=== PATIENT | female | born 1945 | race Caucasian/White ===

== ENCOUNTER 2018-03-18 10:48 | Outpatient (REF) | payer MEDICARE, OTHER, SELFPAY ==
[2018-03-18 21:05] LABS: Anion Gap 11.6 mmol/L (3-11); BUN 28 mg/dL (7-18); CO2 24.4 mmol/L (21.0-32.0); CREATININE 1.63 mg/dL (0.55-1.02); Calcium 9.1 mg/dL (8.5-10.1); Chloride 105 mmol/L (98-107); Estimated GFR 30.93 (mL/min/1.73m2); Glucose 94 mg/dL (70-100); Magnesium 1.5 mg/dL (1.8-2.4); Potassium 4.2 mmol/L (3.5-5.1); Sodium 141 mmol/L (136-145)
== END 2018-03-18 11:08 ==
LOC: NCHCN 10:48
PROVIDERS: PCP Specialist/Technologist Athletic Trainer; Visit Provider Specialist/Technologist Athletic Trainer
DX: N18.2 Chronic kidney disease, stage 2 (mild) (principal); E83.42 Hypomagnesemia; I10 Essential (primary) hypertension
CPT/HCPCS: 80048; 83735

== ENCOUNTER 2018-10-01 11:02 | Outpatient (REF) | payer MEDICARE, OTHER, SELFPAY ==
[2018-10-01 22:44] LABS: Abs Immature Grans 0.03 k/cumm (0.0-0.09); Absolute Basophil Count 0.04 k/cumm (0.0-0.2); Absolute Eosinophil Count 0.43 k/cumm (0.0-0.7); Absolute Lymphocyte Count 2.15 k/cumm (1.2-3.4); Absolute Monocyte Count 0.86 k/cumm (0.11-0.7); Absolute Neutrophil Count 4.24 k/cumm (1.2-6.7); Basophils % 0.5; Eosinophils % 5.5; HCT 37.7 % (36.0-46.0); HGB 12.7 g/dL (12.0-15.5); Immature Grans % 0.4; Lymphocytes % 27.7; Mean Corp. HGB Concentration 33.7 g/dL (32.0-36.0); Mean Corpuscular Hemoglobin 31.4 pg (27.0-33.0); Mean Corpuscular Volume 93.1 fL (80-95); Mean Platelet Volume 11.1 fL (8.0-11.0); Monocytes % 11.1; Neutrophils % 54.8; Platelet Count 278 x1000/uL (130-400); RBC 4.05 m/cumm (4.00-5.20); RBC Distribution Width 12.5 % (11.7-14.6); White Blood Cell Count 7.75 k/cumm (4.4-10.8)
[2018-10-01 22:57] LABS: ALT 20 U/L (12-78); AST 11 U/L (15-37); Albumin 3.8 g/dL (3.4-5.0); Alkaline Phosphatase 73 U/L (46-116); BUN 26 mg/dL (7-18); Bilirubin, Total 0.8 mg/dL (0.2-1.0); CREATININE 1.71 mg/dL (0.55-1.02); Calcium 10.3 mg/dL (8.5-10.1); Chloride 102 mmol/L (98-107); Cholesterol 219 mg/dL (50-200); Estimated GFR 29.26 (mL/min/1.73m2); Glucose 106 mg/dL (70-100); HDL Cholesterol 45 mg/dL (40-60); LDL CHOLESTEROL 147 mg/dL (<100); Magnesium 1.4 mg/dL (1.8-2.4); Potassium 3.8 mmol/L (3.5-5.1); Sodium 139 mmol/L (136-145); TSH 3.28 uIU/mL (0.358-3.74); Total Protein 7.7 g/dL (6.4-8.2); Triglyceride 170 mg/dL (30-150)
[2018-10-01 23:12] LABS: C-Reactive Protein 0.73 mg/dL (0.0-0.3); ESR 77 MM/HR (0-30)
== END 2018-10-01 11:22 ==
LOC: NCHCN 11:02
PROVIDERS: PCP Specialist/Technologist Athletic Trainer; Visit Provider Nurse Practitioner Family
DX: I10 Essential (primary) hypertension (principal); E03.9 Hypothyroidism, unspecified; E78.5 Hyperlipidemia, unspecified; E83.42 Hypomagnesemia; N18.2 Chronic kidney disease, stage 2 (mild)
CPT/HCPCS: 80053; 80061; 83721; 85652; 83735; 84443; 85025; 86140

== ENCOUNTER 2019-01-13 08:32 | Outpatient (REF) | payer MEDICARE, OTHER, SELFPAY ==
[2019-01-13 22:06] LABS: ALT 20 U/L (12-78); AST 14 U/L (15-37); Calculated LDL 77 mg/dL; Cholesterol 140 mg/dL (50-200); HDL Cholesterol 39 mg/dL (40-60); Triglyceride 123 mg/dL (30-150)
[2019-01-13 22:23] LABS: Creatine Kinase 59 U/L (26-192)
== END 2019-01-13 08:52 ==
LOC: NCHCN 08:32
PROVIDERS: PCP Specialist/Technologist Athletic Trainer; Visit Provider Nurse Practitioner Family
DX: E78.5 Hyperlipidemia, unspecified (principal)
CPT/HCPCS: 80061; 82550; 83721; 84450; 84460

== ENCOUNTER 2019-03-06 02:06 | Outpatient (CLI) | payer MEDICARE, OTHER, SELFPAY ==
--- NOTE | 2019-03-06 10:21 | DI.MAMMO_ITS ---
EXAM: MG MAMMO SCREENING CLINICAL HISTORY: SCREENING Z12.39 TECHNIQUE: Mammograms were interpreted according to the usual protocol including computer analysis w [employer] CAD system, tomosynthesis and C-view imaging. COMPARISON: Comparison is made with outside exams dated 2013 through 2018. FINDINGS: The breasts are composed of scattered fibroglandular densities., breast density category B. There a re no suspicious masses or suspicious microcalcifications. There has been no significant change. IMPRESSION: BI-RADS Cat 1 - NegativeNo specific evidence of malignancy at this time. Routine screening examinatio ns are suggested at yearly intervals in this age group according to the ACS ACR guidelines. Breast Density - Category B - Scattered areas of fibroglandular density
== END 2019-03-06 02:26 ==
PROVIDERS: PCP Nurse Practitioner Family; Visit Provider Nurse Practitioner Family
DX: Z12.31 Encounter for screening mammogram for malignant neoplasm of breast (principal)
CPT/HCPCS: 77063; 77067

== ENCOUNTER 2019-04-21 10:40 | Outpatient (REF) | payer MEDICARE, OTHER, SELFPAY ==
[2019-04-21 21:35] LABS: Anion Gap 11.1 mmol/L (3-11); BUN 26 mg/dL (7-18); CO2 25.9 mmol/L (21.0-32.0); CREATININE 1.59 mg/dL (0.55-1.02); Calcium 9.4 mg/dL (8.5-10.1); Chloride 103 mmol/L (98-107); Estimated GFR 31.74 (mL/min/1.73m2); Glucose 95 mg/dL (70-100); HDL Cholesterol 44 mg/dL (40-60); LDL CHOLESTEROL 90 mg/dL (<100); Potassium 3.9 mmol/L (3.5-5.1); Sodium 140 mmol/L (136-145)
[2019-04-21 21:45] LABS: Magnesium 1.6 mg/dL (1.8-2.4)
== END 2019-04-21 11:00 ==
LOC: NCHCN 10:40
PROVIDERS: PCP Nurse Practitioner Family; Visit Provider Nurse Practitioner Family
DX: E78.5 Hyperlipidemia, unspecified (principal)
CPT/HCPCS: 80048; 83721; 83718; 83735

== ENCOUNTER 2019-07-09 13:53 | Outpatient (REF) | payer MEDICARE, OTHER, SELFPAY ==
[2019-07-09 20:24] LABS: Anion Gap 9.5 mmol/L (3-11); BUN 29 mg/dL (7-18); CO2 27.5 mmol/L (21.0-32.0); CREATININE 1.61 mg/dL (0.55-1.02); Calcium 10.4 mg/dL (8.5-10.1); Chloride 102 mmol/L (98-107); Estimated GFR 31.28 (mL/min/1.73m2); Glucose 99 mg/dL (74-106); Magnesium 1.8 mg/dL (1.8-2.4); Sodium 139 mmol/L (136-145)
== END 2019-07-09 14:13 ==
LOC: NCHCN 13:53
PROVIDERS: PCP Nurse Practitioner Family; Visit Provider Nurse Practitioner Family
DX: I10 Essential (primary) hypertension (principal); N18.2 Chronic kidney disease, stage 2 (mild)
CPT/HCPCS: 80048; 83735

== ENCOUNTER 2020-01-05 13:08 | Outpatient (REF) | payer MEDICARE, OTHER, SELFPAY ==
[2020-01-05 19:18] LABS: Anion Gap 11.7 mmol/L (3-11); BUN 41 mg/dL (7-18); CO2 25.3 mmol/L (21.0-32.0); CREATININE 1.79 mg/dL (0.55-1.02); Calcium 10.1 mg/dL (8.5-10.1); Chloride 102 mmol/L (98-107); Estimated GFR 27.61 (mL/min/1.73m2); Glucose 105 mg/dL (74-106); Potassium 4.1 mmol/L (3.5-5.1); Sodium 139 mmol/L (136-145)
== END 2020-01-05 13:28 ==
LOC: NCHCN 13:08
PROVIDERS: PCP Nurse Practitioner Family; Visit Provider Nurse Practitioner Family
DX: E78.5 Hyperlipidemia, unspecified (principal)
CPT/HCPCS: 80048

== ENCOUNTER 2020-01-06 14:45 | Outpatient (REF) | payer MEDICARE, OTHER, SELFPAY | END 2020-01-06 15:05 | LOC: NCHCN 14:45 | PROVIDERS: PCP Nurse Practitioner Family; Visit Provider Nurse Practitioner Family | DX: Z11.59 Encounter for screening for other viral diseases (principal) | CPT/HCPCS: U0003 ==

== ENCOUNTER 2020-03-19 04:15 | Outpatient (CLI) | payer MEDICARE, OTHER, SELFPAY ==
--- NOTE | 2020-03-19 | DI.MAMMO_ITS ---
EXAM: MG MAMMO SCREENING CLINICAL HISTORY: SCREENING,Z12.39 TECHNIQUE: Bilateral full field digital CC and MLO mammographic images were obtained with 3D tomosyn thesis and utilizing computer aided detection (CAD). COMPARISON: Available for comparison. FINDINGS: Masses/Architectural Distortion: Stable nodules are seen in the right breast. No suspicious masses a rchitectural distortion is noted. Microcalcifications: No suspicious pleomorphic-type are seen. Skin Thickening/Nipple Retraction: None. IMPRESSION: 1. No significant interval change with no specific features of malignancy noted. 2. Unless there is more urgent need, screening mammography is recommended, as per [employer] guidelines. BI-RADS Category 1 - Negative Breast Density - Category B - Scattered areas of fibroglandular density A negative radiographic report should not delay biopsy if a dominant or clinically suspicious mass is present. Up to ten percent of cancers are not identified on mammography. A negative report may reinforce clinical impression. Adenosis and dense breasts may obscure an underlying neoplasm. False positive reports average 6 to 10%. Patient will receive a letter notifying them of these results.
== END 2020-03-19 04:35 ==
PROVIDERS: PCP Nurse Practitioner Family; Visit Provider Nurse Practitioner Family
DX: Z12.31 Encounter for screening mammogram for malignant neoplasm of breast (principal); N63.10 Unspecified lump in the right breast, unspecified quadrant
CPT/HCPCS: 77063; 77067

== ENCOUNTER 2020-05-05 10:40 | Outpatient (REF) | payer MEDICARE, OTHER, SELFPAY ==
[2020-05-05 21:22] LABS: ALT 19 U/L (14-59); AST 17 U/L (15-37); HDL Cholesterol 48 mg/dL (40-60); LDL CHOLESTEROL 81 mg/dL (<100); Magnesium 1.7 mg/dL (1.8-2.4); TSH 3.14 uIU/mL (0.36-3.74)
[2020-05-05 21:37] LABS: Creatine Kinase 93 U/L (26-192)
== END 2020-05-05 11:00 ==
LOC: NCHCN 10:40
PROVIDERS: PCP Nurse Practitioner Family; Visit Provider Nurse Practitioner Family
DX: E78.5 Hyperlipidemia, unspecified (principal); I10 Essential (primary) hypertension; E03.9 Hypothyroidism, unspecified
CPT/HCPCS: 82550; 83721; 83718; 83735; 84443; 84450; 84460

== ENCOUNTER 2020-11-02 11:25 | Outpatient (REF) | payer MEDICARE, OTHER, SELFPAY ==
[2020-11-02 15:39] LABS: Anion Gap 12.9 mmol/L (3-11); BUN 29 mg/dL (7-18); CO2 24.1 mmol/L (21.0-32.0); CREATININE 1.7 mg/dL (0.55-1.02); Calcium 9.5 mg/dL (8.5-10.1); Chloride 105 mmol/L (98-107); Glucose 108 mg/dL (74-106); Sodium 142 mmol/L (136-145)
== END 2020-11-02 11:26 | disposition home or self-care (01) ==
LOC: NCHCN 11:25
PROVIDERS: PCP Nurse Practitioner Family; Visit Provider Nurse Practitioner Family
DX: I10 Essential (primary) hypertension (principal); K21.9 Gastro-esophageal reflux disease without esophagitis; N18.2 Chronic kidney disease, stage 2 (mild)
CPT/HCPCS: 80048

== ENCOUNTER 2021-03-21 01:39 | Outpatient (CLI) | payer MEDICARE, OTHER, SELFPAY ==
--- NOTE | 2021-03-21 11:20 | DI.MAMMO_ITS ---
Exam(s) MAMMO SCREENING EXAM: MAMMO SCREENING CLINICAL HISTORY: SCREENING, Z12.39. TECHNIQUE: Bilateral full field digital CC and MLO mammographic images were obtained with 3D tomosyn thesis and utilizing computer aided detection (CAD). COMPARISON: Prior mammograms dating back to 2013, the most recent being March 2020. FINDINGS: No new significant radiograph findings in left breast Two nodules are again noted in the right breast. The more anterior of these nodules appears of sligh tly increased in size, presently measuring 6 by 6 millimeters this is located 4 cm in from the nipple on the CC view. There are no malignant-appearing microcalcification groups in this region or elsewhere in either [address]. There is no significant architectural distortion nor skin thickening-retraction. IMPRESSION: Two right breast nodules. The more anterior of these 2 nodules appears to have increased in size. B reast ultrasound recommended. BI-RADS Category 0 - Assessment Incomplete: Need additional imaging evaluation Breast Density - Category B - Scattered areas of fibroglandular density Breast density Category C or D implies that the patient has dense breast tissue. Dense breast tissue can make it harder to find cancer on a mammogram. Dense breast tissue is also associated with an incr eased risk of breast cancer. This information about the result of the mammogram report was provided to the patient to raise their awareness. Use this report when you speak with the patient about their risks for breast cancer, which includes their family history. At that time, you may recommend additional screening tests (Ultrasoun d or MRI) as these tests may add significant information. A negative radiographic report should not delay biopsy if a dominant or clinically suspicious mass is present. Up to ten percent of cancers are not identified on mammography. A negative report may reinforce clinical impression. Adenosis and dense breasts may obscure an underlying neoplasm. False positive reports average 6 to 10%. Patient will receive a letter notifying them of these results.
== END 2021-03-21 01:59 ==
PROVIDERS: PCP Nurse Practitioner Family; Visit Provider Nurse Practitioner Family
DX: Z12.31 Encounter for screening mammogram for malignant neoplasm of breast (principal); R92.8 Other abnormal and inconclusive findings on diagnostic imaging of breast
CPT/HCPCS: 77063; 77067

== ENCOUNTER 2021-03-24 01:40 | Outpatient (CLI) | payer MEDICARE, OTHER, SELFPAY ==
--- NOTE | 2021-03-24 | DI.US_ITS ---
Exam(s) US BREAST RT COMPLETE EXAM: US BREAST RT COMPLETE CLINICAL HISTORY: F/U MAMMO, TWO RT BREAST NODULES,SLIGHTLY INCREASED IN SIZE. TECHNIQUE: Complete ultrasound of the right breast was performed including all 4 quadrants, the retr oareolar region, and the ipsilateral axilla. COMPARISON: Prior mammograms were reviewed. Most recent mammogram was 03/21/2021 FINDINGS: There are 3 findings seen on ultrasound. At the 1 o'clock position there is a microcyst measuring 4 x 2 millimeters, corresponding to the most posterior of the 2 nodules on the mammogram. At 2 o'clock position there is a 6 x 3 millimeter microcyst, this corresponding to the more anterior and larger of the 2 findings on the mammogram. At 9 o'clock position there is a 2 millimeter benign microcyst. Most importantly, there are no solid lesions in all 4 quadrants nor in the retroareolar region. Scanning of the axilla is negative for significant adenopathy. IMPRESSION: Three benign microcysts as described above. No solid lesions. Appropriate follow-up is to keep this patient yearly mammogram schedule, with earlier imaging if a se lf detected breast change is noted.. BI-RADS Category 2 - Benign Findings Breast Density - Category B - Scattered areas of fibroglandular density Breast density Category C or D implies that the patient has dense breast tissue. Dense breast tissue can make it harder to find cancer on a mammogram. Dense breast tissue is also associated with an incr eased risk of breast cancer. This information about the result of the mammogram report was provided to the patient to raise their awareness. Use this report when you speak with the patient about their risks for breast cancer, which includes their family history. At that time, you may recommend additional screening tests (Ultrasoun d or MRI) as these tests may add significant information. A negative radiographic report should not delay biopsy if a dominant or clinically suspicious mass is present. Up to ten percent of cancers are not identified on mammography. A negative report may reinforce clinical impression. Adenosis and dense breasts may obscure an underlying neoplasm. False positive reports average 6 to 10%. Patient will receive a letter notifying them of these results.
== END 2021-03-24 02:00 ==
PROVIDERS: PCP Nurse Practitioner Family; Visit Provider Nurse Practitioner Family
DX: R92.8 Other abnormal and inconclusive findings on diagnostic imaging of breast (principal); N60.11 Diffuse cystic mastopathy of right breast
CPT/HCPCS: 76642

== ENCOUNTER 2021-05-02 09:00 | Outpatient (REF) | payer MEDICARE, OTHER, SELFPAY ==
[2021-05-02 18:15] LABS: ALT 24 U/L (14-59); AST 14 U/L (15-37); Anion Gap 13.4 mmol/L (3-11); BUN 36 mg/dL (7-18); CO2 23.6 mmol/L (21.0-32.0); CREATININE 1.7 mg/dL (0.55-1.02); Calcium 9.8 mg/dL (8.5-10.1); Calculated LDL 79 mg/dL (<100); Chloride 104 mmol/L (98-107); Cholesterol 150 mg/dL (<200); Creatine Kinase 56 U/L (26-192); Estimated GFR 29.22 (mL/min/1.73m2); Glucose 110 mg/dL (74-106); HDL Cholesterol 49 mg/dL (40-60); Potassium 3.8 mmol/L (3.5-5.1); Sodium 141 mmol/L (136-145); TSH (W/Ref FT4) 3.62 uIU/mL (0.36-3.74); Triglyceride 113 mg/dL (<150)
== END 2021-05-02 09:01 | disposition home or self-care (01) ==
LOC: NCHCN 09:00
PROVIDERS: PCP Nurse Practitioner Family; Visit Provider Nurse Practitioner Family
DX: E78.5 Hyperlipidemia, unspecified (principal); I10 Essential (primary) hypertension; N18.2 Chronic kidney disease, stage 2 (mild); E03.9 Hypothyroidism, unspecified
CPT/HCPCS: 80048; 80061; 82550; 84443; 84450; 84460

== ENCOUNTER 2022-01-16 16:36 | Outpatient (REF) | payer MEDICARE, OTHER, SELFPAY | END 2022-01-16 16:37 | disposition home or self-care (01) | LOC: LBN 16:36 | PROVIDERS: PCP Nurse Practitioner Family; Visit Provider Nurse Practitioner Family | DX: N39.0 Urinary tract infection, site not specified (principal) | CPT/HCPCS: 87077; 87086; 87186 ==

== ENCOUNTER → 2022-02-08 09:52 | Outpatient (BNVA) | payer MEDICARE, OTHER, SELFPAY | PROVIDERS: PCP Nurse Practitioner Family; Referring Provider Nurse Practitioner Family; Visit Provider Surgery | DX: Z86.010 Personal history of colon polyps (principal); Z12.11 Encounter for screening for malignant neoplasm of colon ==

== ENCOUNTER 2022-02-16 08:05 | Day surgery (SDC) | payer MEDICARE, OTHER, SELFPAY ==
--- NOTE | 2022-02-16 05:46 | PDOC.DSDIS_ITS ---
Discharge Plan Disposition Patient Disposition: HOME Condition: Good Discharge Details Reason For Visit: screening colonoscopy Attending Provider: Hossein Posadas Primary Care Provider: Jeimy Abarca Home Meds and New Rx's Prescriptions: Continued atenolol 25 mg tablet 25 mg PO HS magnesium oxide 400 mg magnesium capsule 400 mg PO BID atorvastatin 10 mg tablet 10 mg PO .qod amlodipine 5 MG tablet 5 mg PO HS levothyroxine 25 MCG tablet 25 mcg PO DAILY losartan-hydrochlorothiazide 1 EACH tablet 1 tab-cap PO HS aspirin 81 MG tablet,chewable 81 mg PO DAILY calcium-vitamin D3-vitamin K 1 EACH tablet,chewable 1 ea PO DAILY Discontinued bisacodyl [Dulcolax (bisacodyl)] 5 mg tablet,delayed release (DR/EC) 5 mg PO ONCE Qty: 4 0RF Rx Instructions: Take according to provider's instructions for colonoscopy prep. polyethylene glycol 3350 17 gram/dose powder 17 g PO ONCE Qty: 238 0RF Rx Instructions: To be taken as directed by prescriber's office for colonoscopy prep. Discharge Instructions Instructions: Colonoscopy (DC), Colorectal Polyps (DC) Additional Instructions: 1. If tolerated, consume a soft, low fiber diet for 1-2 days. 2[address] Do not drive, drink alcohol, operate machinery, make critical decisions, or do activities that require coordination or balance for 24 hours. 3. Because air was put into your colon during the procedure, expelling air from your rectum (passing gas or farting) is normal. 4. You may not have a bowel movement for 1-3 days because of the colonoscopy prep. This is normal. 5. Go directly to the emergency room if you notice any of the following: Develop chills (warm to touch), or if you have a thermometer and your temperature is above 101 Difficulty breathing or difficultly swallowing Persistent vomiting Severe abdominal pain, other than gas cramps Severe chest pain Black, tarry stools Any bleeding ? exceeding one tablespoon 6. Call your physician if the site where your intravenous was started becomes red, swollen, painful, and warm to touch. 7. Your physician has reviewed your pre-procedure medications. Please continue to take those medications as previously ordered. You will be given specific i nformation/education regarding any changes to your medications before leaving. Activity:: Activity as Tolerated Diet:: As Tolerated Discharge Orders Discharge Orders: Discharge Order (Routine); Ordered 02/16/22 Ordered By: Hossein Posadas DS: Diagnosis Discharge Diagnosis (1) Rectal polyp: Status: Acute Asessment and Plan: my office will call you with results of the biopsy
--- NOTE | 2022-02-16 05:49 | COLE_ITS ---
Colonoscopy Report Date of procedure: 02/16/22 Pre-op diagnosis general: screening colonoscopy for routine health maintenance Procedure: screening colonoscopy Surgeon: Hossein Posadas Anesthesia Type: General:No Airway Estimated blood loss (mL): 15 Pathology: other (rectal polyp at 18 cm) Complications: None Disposition: same day Indications: Meeta Ch is a 76-year-old woman who returns approximately 5 years after her last colonoscopy, for another screening colonoscopy. Her history relevant today is a polyp. Prep: Miralax/Dulcolax Procedure Start Time: 09:46 Procedure End Time: 10:10 Retraction Time: 20 Findings: There was a pedunculated polyp around 18 cm Procedure Description: After the induction of monitored anesthetic care, and with the patient in left lateral decubitus position, I began by performing an external anorectal exam.? Perineum and skin were normal, as was the anal verge.? There was mild evidence of fibrosed external hemorrhoids.? Next, I performed a digital rectal exam.? I did not appreciate any abnormal findings.? Next, I advanced a colonoscope into the rectal vault.? I performed retroflexion.? I did see signs of internal hemorrhoids.? Using insufflation, I then advanced the colonoscope beyond the rectal folds and into the sigmoid colon before advancing towards the cecum.? The quality of the prep was excellent.? The scope was noted to be in the cecum by identification of the ileocecal valve and appendiceal orifice.? I then began withdrawing the colonoscope using repeated irrigation as necessary for full evaluation of the colonic mucosa. ?Once the scope was withdrawn to the level of the rectum, great care was taken to examine portions of the rectal folds. Around 18 cm from the anal verge I identified a 1 cm polyp. ?It appeared pedunculated in character. ?I was able to remove this with a small snare. There was a small remaining portion of what appeared to be fibrosed stalk. I removed this with a single bite of a cold forceps. ?I examined the site, and there was minimal bleeding. ?Once this was completed, I continued to withdraw the scope and ex amine the remainder of the colonic mucosa.?Finally, the scope was withdrawn and the patient was brought to the same-day surgery recovery unit as the anesthetic wore off. ?The findings and instructions were shared with the patient prior to discharge.
--- NOTE | 2022-02-16 06:57 | W.ANESPRE ---
General Info Date of Service Date Performed: 02/16/22 Height: 5 ft Weight: 65.941 kg Body Mass Index (BMI): 28.3 Surgical Procedure: Operation Date: 02/16/22 09:35 Proposed Procedure Side Surgeon p Satish Posadas MD Meds Allergies and Home Medications Allergies Allergy/AdvReac Type Severity Reaction Status Date / Time morphine Allergy Mild Itching Verified 02/16/22 08:44 mannitol [From Reclast] AdvReac Intermediate eye Unverified 02/16/22 08:44 inflammation water for injection,sterile AdvReac Intermediate eye Unverified 02/16/22 08:44 [From Reclast] inflammation zoledronic acid AdvReac Intermediate eye Unverified 02/16/22 08:44 [From Reclast] inflammation Home Medication Medication Instructions Recorded amlodipine 5 mg tablet 5 mg PO HS 04/21/16 aspirin 81 mg chewable tablet 81 mg PO DAILY 04/21/16 calcium-vitamin D3-vitamin K 500 1 ea PO DAILY 04/21/16 mg-1,000 unit-40 mcg chewable tablet levothyroxine 25 mcg tablet 25 mcg PO DAILY 04/21/16 losartan 100 1 tab-cap PO HS 04/21/16 mg-hydrochlorothiazide 25 mg tablet atenolol 25 mg tablet 25 mg PO HS 02/08/22 atorvastatin 10 mg tablet 10 mg PO .qod 02/08/22 magnesium oxide 400 mg PO BID 02/08/22 Current Visit Medications: Current Medications Generic Name Dose Route Start Last Admin Trade Name Freq PRN Reason Stop Dose Admin Ringer's Solution 1,000 mls @ 80 mls/hr 02/16/22 06:00 IV 03/17/22 23:59 INFUSION UMAIR IV Miscellaneous Supplies 1 each 02/16/22 06:00 Iv Access IV 03/17/22 23:59 DIRECTED UMAIR Sodium Chloride 0 ml 02/16/22 06:00 Normal Saline Flush 10 Ml Syr IV 03/17/22 23:59 PRN PRN Sodium Chloride 0 ml 02/16/22 06:00 Normal Saline 10 Ml Vial IJ 03/17/22 23:59 DIRECTED PRN Sterile Water 0 ml 02/16/22 06:00 Water,Injection,Sterile 10 Ml Vial IJ 03/17/22 23:59 DIRECTED PRN PFSH Active Problems Active Problems: Problem Status Onset Code Screening for colon cancer Z12.11 Globus sensation R09.89 Medical History Medical History GERD (gastroesophageal reflux disease) Hx of renal insufficiency syndrome Hyperlipidemia Hyperplastic colon polyp Hypertension Hypothyroidism Osteoporosis Pain of left heel Tubular adenoma of colon (07/03/16) Medical History Comments:: Per pt. states the in the past she was told her BP drops during anesthesia Surgical History Surgical History Abdominal hysterectomy Cholecystectomy 2006 Colonoscopy - IV Sedation (07/03/16) 2006 EGD - IV Sedation 2012 Oophrectomy, Both Tobacco Smoking/Tobacco Use Status: Never Alcohol Alcohol Intake: never Substance Use Substance use: Never Substance use type: does not use Vital Signs and Lab Results Lab Results Blood Type / Crossmatch: No Data to Display Complete Blood Count: No Data to Display Complete Metabolic Panel: No Data to Display Liver Function Panel: No Data to Display Coagulation Panel: No Data to Display Cardiac Panel: No Data to Display Arterial Blood Gas: No Data to Display Venous Blood Gas: No Data to Display Pancreas Panel: No Data to Display Thyroid Panel: No Data to Display Infectious Disease: No Data to Display Blood Cultures: No Data to Display Toxicology Panel: No Data to Display Anesthesia Assessment and Plan Anesthesia History Personal History: Other Family History: No Family History of Anesthesia Complications Exercise Tolerance Exercise Tolerance: Metabolic Equivalents>4 Pertinent Negatives Pertinent Negatives: No Symptoms of GERD, No Major Cardiovascular Symptoms or Complaints, No Major Pulmonary Symptoms or Complaints and No History of CVA/TIA Cardiac & Pulmonary Exam Cardiac Exam: Normal S1/S2 Heart Sounds Pulmonary Exam: Clear Bilateral Breath Sounds Implantable Cardiac Device Does patient have a Pacemaker or an ICD?: No Airway Exam Known Difficult Airway: No Mallampati Class: 2 Mouth Opening: Normal (> 3cm) Thyromental Distance: Greater than 3 cm Neck Range of Motion: Full ROM Neck Circumference: Normal Teeth Condition: Normal Dentition ASA Classification ASA Score: ASA 3 Emergency Case?: No NPO Status NPO Status: NPO Clears >2 hours, Solids >8 hours Anesthesia Plan Resuscitation Status: Full Code Anesthesia Technique: General Anesthesia Airway Planned: Natural Airway Monitors Used: Standard Monitors
[2022-02-16 08:20] VITALS: BP 182/63; PULSE 44; RESP 18; TEMP 36.6; O2SAT 97
[2022-02-16] MEDS: Lactated Ringers 1,000 ML 80 ML IV (08:50)
[2022-02-16 09:47] VITALS: BMI 28.3
--- NOTE | 2022-02-16 10:06 | BOWEL_PTH ---
PATIENT: Meeta Ch LOC: [facility] U#:[id number] AGE/SX: 76/F ROOM: RE02/16/[address]: Hossein Posadas MD : [id number] BED: DIS: 02/16/2022 SPEC #: [id number] RECD: 02/16/22 12:16 STATUS: TSERING REQ #: [id number] JOSH: 02/16/22 10:[address]: Hossein Posadas DEPT: Surgical Specimen RECD BY: Gila Pino ENTERED: 02/16/22 12:17 SP TYPE: Bowel OTHR DR: Jeimy Abarca Tissues: 1 - BIOPSY BOWEL Procedures: GROSS AND MICRO LEVEL 4 Comments: [id number]
[2022-02-16 10:15] VITALS: BP 130/59; PULSE 46; RESP 16; TEMP 36; O2SAT 98
[2022-02-16 10:45] VITALS: BP 149/65; PULSE 45; RESP 16; TEMP 36.2; O2SAT 100
--- NOTE | 2022-02-16 15:19 | W.ANESPOSTOP ---
Postoperative Evaluation Date, Time and Location Date Performed: 02/16/22 Time Performed: 15:19 Patient Location: Day Surgery Unit Vital Signs Most Recent Imported Vital Signs: Most Recent Vital Signs Temp Pulse Resp BP Pulse Ox 36.2 C L 45 L 16 149/65 H 100 02/16/22 10:45 02/16/22 10:45 02/16/22 10:45 02/16/22 10:45 02/16/22 10:45 Pain Score Most Recent Pain Score: Most Recent Pain Score Pain Level 0 02/16/22 10:45 Assessment Mental Status: Awake (Alert & Oriented to Patient Baseline) Airway and Respiratory Function: Patent airway with normal (patient baseline) respiratory exam Cardiovascular Function: Hemodynamically Stable Hydration Status: Adequately Hydrated Nausea & Vomiting: No Nausea or Vomiting Pain: Pt. Denies Any Pain Peripheral Nerve Block: Patient did not receive a nerve block Postoperative Comments:: Patient seen earlier today, appropriate for discharge
== END 2022-02-16 11:05 | disposition home or self-care (01) ==
PROVIDERS: PCP Nurse Practitioner Family; Visit Provider Surgery
PROC: 0DJD8ZZ Inspection of Lower Intestinal Tract, Via Natural or Artificial Opening Endoscopic (ICD-10-PCS; CPT 45378; principal; 2022-02-16 09:30)
DX: Z12.11 Encounter for screening for malignant neoplasm of colon (principal); K62.1 Rectal polyp
CPT/HCPCS: 45385; 88305

== ENCOUNTER 2022-02-23 19:06 | Outpatient (REF) | payer MEDICARE, OTHER, SELFPAY ==
[2022-02-23 22:32] LABS: C & S Indicated? C&S Done As Ordered
[2022-02-23 22:34] LABS: Bacteria Many HPF (Negative); Crystals Negative HPF (Negative); Epithelial Cells Rare HPF (Negative); Mucus Negative (Negative); Other Cells Rare Transitional (Negative); WBC >50 HPF (0-5)
== END 2022-02-23 19:07 | disposition home or self-care (01) ==
LOC: LBN 19:06
PROVIDERS: PCP Nurse Practitioner Family; Visit Provider Physician Assistant Medical
DX: N39.0 Urinary tract infection, site not specified (principal)
CPT/HCPCS: 87077; 81015; 87086; 87186

== ENCOUNTER 2022-06-21 16:34 | Outpatient (REF) | payer MEDICARE, OTHER, SELFPAY ==
[2022-06-21 16:01] LABS: ALT 17 U/L (14-59); AST 21 U/L (15-37); Albumin 3.8 g/dL (3.4-5.0); Alkaline Phosphatase 80 U/L (46-116); Anion Gap 8.3 mmol/L (3-11); BUN 30 mg/dL (7-18); Bilirubin, Total 0.6 mg/dL (0.2-1.0); CO2 27.7 mmol/L (21.0-32.0); CREATININE 1.8 mg/dL (0.55-1.02); Calcium 10.3 mg/dL (8.5-10.1); Chloride 104 mmol/L (98-107); Estimated GFR 28.66 (mL/min/1.73m2); Glucose 108 mg/dL (74-106); HDL Cholesterol 52 mg/dL (40-60); LDL CHOLESTEROL 81 mg/dL (<100); Magnesium 1.9 mg/dL (1.8-2.4); Potassium 3.9 mmol/L (3.5-5.1); Sodium 140 mmol/L (136-145); TSH 2.86 uIU/mL (0.36-3.74); Total Protein 8.5 g/dL (6.4-8.2)
[2022-06-21 16:52] LABS: Creatine Kinase 66 U/L (26-192); FREE T4 1.37 ng/dL (0.76-1.46)
== END 2022-06-21 16:35 | disposition home or self-care (01) ==
LOC: NCHCN 16:34
PROVIDERS: PCP Nurse Practitioner Family; Visit Provider Nurse Practitioner Family
DX: E78.5 Hyperlipidemia, unspecified (principal); E03.9 Hypothyroidism, unspecified; E83.42 Hypomagnesemia
CPT/HCPCS: 80053; 82550; 83721; 83718; 83735; 84439; 84443

== ENCOUNTER 2022-07-17 00:32 | Outpatient (CLI) | payer MEDICARE, OTHER, SELFPAY ==
--- NOTE | 2022-07-17 08:30 | DI.MAMMO_ITS ---
Exam(s) MAMMO SCREENING EXAM: MAMMO SCREENING CLINICAL HISTORY: SCREENING, Z12.31 TECHNIQUE: Mammograms were interpreted according to the usual protocol including computer analysis w [employer] CAD system, tomosynthesis and C-view imaging. COMPARISON: 2013 through 2020 FINDINGS: The breasts are composed of scattered fibroglandular densities, Breast Density category B. No suspicious masses or suspicious microcalcifications are seen. Stable area of nodularity in the me dial right breast. Second nodule noted on prior exam no longer present. No skin thickening or abnormal axillary lymph nodes are seen. There has been no significant change from prior exams. IMPRESSION: BI-RADS Cat 2 - Benign Findings Yearly screening mammography is recommended. Breast Density - Category B, scattered fibroglandular densities. A negative radiographic report should not delay biopsy if a dominant or clinically suspicious mass is present. Up to ten percent of cancers are not identified on mammography. A negative report may reinforce clinical impression. Adenosis and dense breasts may obscure an underlying neoplasm. False positive reports average 6 to 10%. Patient will receive a letter notifying them of these results.
== END 2022-07-17 00:52 ==
LOC: DI 00:33
PROVIDERS: PCP Nurse Practitioner Family; Visit Provider Nurse Practitioner Family
DX: Z12.31 Encounter for screening mammogram for malignant neoplasm of breast (principal)
CPT/HCPCS: 77063; 77067

== ENCOUNTER 2022-08-04 02:17 | Outpatient (CLI) | payer MEDICARE, OTHER, SELFPAY ==
[2022-08-04 10:16] LABS: Abs Immature Grans 0.03 10^3/uL (0.0-0.06); Absolute Basophil Count 0.08 10^3/uL (0.0-0.2); Absolute Eosinophil Count 0.69 10^3/uL (0.0-0.7); Absolute Lymphocyte Count 2.39 10^3/uL (1.2-3.4); Absolute Monocyte Count 0.91 10^3/uL (0.1-0.8); Absolute Neutrophil Count 4.53 10^3/uL (1.2-6.7); Basophils % 0.9; HCT 34.1 % (36.0-46.0); HGB 11.4 g/dL (11.2-15.7); Immature Grans % 0.3; Lymphocytes % 27.7; MCH 30.6 pg (27.0-33.0); MCHC 33.4 % (32.0-36.0); MCV 92 fL (80-95); MPV 9.5 fL (8.0-11.0); Monocytes % 10.5; Neutrophils % 52.6; Platelet Count 271 10^3/uL (130-400); RBC 3.72 10^6/uL (3.93-5.22); RDW 12.2 % (11.7-14.6); WBC 8.63 10^3/uL (4.4-10.8)
[2022-08-04 11:25] LABS: Albumin 3.5 g/dL (3.4-5.0); Anion Gap 10.2 mmol/L (3-11); BUN 29 mg/dL (7-18); CO2 26.8 mmol/L (21.0-32.0); CREATININE 1.7 mg/dL (0.55-1.02); Calcium 10.2 mg/dL (8.5-10.1); Chloride 102 mmol/L (98-107); Glucose 96 mg/dL (74-106); PHOSPHORUS 3.9 mg/dL (2.6-4.7); Sodium 139 mmol/L (136-145)
[2022-08-04 12:01] LABS: Iron 59 ug/dL (50-170); Total Iron Binding Capacity 262 ug/dL (250-450); Transferrin Sat 23 % (15-50)
[2022-08-04 13:06] LABS: Ferritin 127 ng/mL (8-252)
[2022-08-04 13:16] LABS: Vitamin D 25 Total 27.7 ng/mL (30-100)
[2022-08-04 20:31] LABS: Parathyroid Hormone,Intact 11 pg/mL (19-88)
== END 2022-08-04 02:18 | disposition home or self-care (01) ==
PROVIDERS: PCP Nurse Practitioner Family; Visit Provider Nurse Practitioner
DX: N18.4 Chronic kidney disease, stage 4 (severe) (principal)
CPT/HCPCS: 36415; 80048; 82306; 82040; 82728; 83540; 83550; 83970; 84100; 85025

== ENCOUNTER 2023-01-02 17:12 | Outpatient (REF) | payer MEDICARE, OTHER, SELFPAY | END 2023-01-02 17:13 | disposition home or self-care (01) | LOC: LBN 17:12 | PROVIDERS: PCP Nurse Practitioner Family; Visit Provider Nurse Practitioner Family | DX: N30.01 Acute cystitis with hematuria (principal) | CPT/HCPCS: 87077; 87086 ==

== ENCOUNTER 2023-08-01 13:08 | Outpatient (REF) | payer MEDICARE, OTHER, SELFPAY ==
[2023-08-01 16:00] LABS: ALT 21 U/L (14-59); AST 18 U/L (15-37); Albumin 3.6 g/dL (3.4-5.0); Alkaline Phosphatase 83 U/L (46-116); Anion Gap 11.6 mmol/L (3-11); BUN 46 mg/dL (7-18); Bilirubin, Total 0.7 mg/dL (0.2-1.0); CO2 24.4 mmol/L (21.0-32.0); CREATININE 1.9 mg/dL (0.55-1.02); Calcium 9.2 mg/dL (8.5-10.1); Chloride 103 mmol/L (98-107); Estimated GFR 26.69 (mL/min/1.73m2); Glucose 108 mg/dL (74-106); HDL Cholesterol 49 mg/dL (40-60); LDL CHOLESTEROL 74 mg/dL (<100); Potassium 4.2 mmol/L (3.5-5.1); Sodium 139 mmol/L (136-145); TSH 3.01 uIU/Ml (0.36-3.74)
[2023-08-01 16:06] LABS: Vitamin D 25 Total 25.6 ng/mL (30-100)
[2023-08-01 16:17] LABS: Creatine Kinase 56 U/L (26-192); FREE T4 1.41 ng/dL (0.76-1.46)
== END 2023-08-01 13:09 | disposition home or self-care (01) ==
LOC: NCHCN 13:08
PROVIDERS: PCP Nurse Practitioner Family; Referring Provider Nurse Practitioner Family; Visit Provider Nurse Practitioner Family
DX: E03.9 Hypothyroidism, unspecified (principal); I10 Essential (primary) hypertension; N28.1 Cyst of kidney, acquired; E83.42 Hypomagnesemia; Z79.899 Other long term (current) drug therapy
CPT/HCPCS: 80053; 82306; 82550; 83721; 83718; 83735; 84439; 84443

== ENCOUNTER 2023-08-14 21:08 | Outpatient (REF) | payer MEDICARE, OTHER, SELFPAY | END 2023-08-14 21:09 | disposition home or self-care (01) | LOC: LBN 21:08 | PROVIDERS: PCP Nurse Practitioner Family; Visit Provider Nurse Practitioner Family | DX: N30.00 Acute cystitis without hematuria (principal) | CPT/HCPCS: 87086 ==

== ENCOUNTER → 2023-08-16 01:33 | Outpatient (CLI) | payer MEDICARE, OTHER, SELFPAY ==
--- NOTE | 2023-08-16 | DI.DEXA_ITS ---
Exam(s) XR DEXA BONE DENSITY W/WO PAULINO EXAM: XR DEXA BONE DENSITY W/WO PAULINO CLINICAL HISTORY: Z78.0 Asymptomatic menopausal state TECHNIQUE: COMPARISON: BD BD Bone Density DXA Axial Skeleton from 03/24/2020 FINDINGS: Lateral Spine Image: Unremarkable. No compression deformities identified. Left hip: Total T-Score: -1.5. The T-score at the femoral neck on the current examination is -2.3. This compar es to -2.2 on the prior examination. Total Z-Score: 0.4 T- and Z-scores: Findings are consistent with osteopenia. No significant change is seen. Lumbar Spine: Total T-Score: -1.7. This compares to -0.9 on the prior examination. Total Z-Score: 0.9 T- and Z-scores: This is consistent with osteopenia. There is osteoporosis noted in the L4 vertebral body with a T-score of -2.9. IMPRESSION: Osteoporosis seen in the L4 vertebral body. Otherwise osteopenia.
--- NOTE | 2023-08-16 15:05 | DI.MAMMO_ITS ---
Exam(s) MAMMO SCREENING EXAM: MAMMO SCREENING CLINICAL HISTORY: Z12.31 Encounter for screening mammogram for malig neop of breast. TECHNIQUE: Bilateral full field digital CC and MLO mammographic images were obtained with 3D tomosyn thesis and utilizing computer aided detection (CAD). COMPARISON: Prior mammograms were reviewed. FINDINGS: There has been no significant change in the appearance and distribution of the fibroglandular tissue. Benign-appearing small nodule in the medial aspect of the right breast is unchanged from prior studie s as is an even smaller more posteriorly located nodule in the right breast. There are no new spiculated masses nor malignant appearing microcalcification groups. There is no significant architectural distortion nor skin thickening-retraction. IMPRESSION: No radiographic evidence of malignancy. Stable benign findings. BI-RADS Category 2 - Benign Findings Breast Density - Category B - Scattered areas of fibroglandular density Breast density Category C or D implies that the patient has dense breast tissue. Dense breast tissue can make it harder to find cancer on a mammogram. Dense breast tissue is also associated with an incr eased risk of breast cancer. This information about the result of the mammogram report was provided to the patient to raise their awareness. Use this report when you speak with the patient about their risks for breast cancer, which includes their family history. At that time, you may recommend additional screening tests (Ultrasoun d or MRI) as these tests may add significant information. A negative radiographic report should not delay biopsy if a dominant or clinically suspicious mass is present. Up to ten percent of cancers are not identified on mammography. A negative report may reinforce clinical impression. Adenosis and dense breasts may obscure an underlying neoplasm. False positive reports average 6 to 10%. Patient will receive a letter notifying them of these results.
== END ==
PROVIDERS: PCP Nurse Practitioner Family; Visit Provider Nurse Practitioner Family
DX: Z78.0 Asymptomatic menopausal state (principal); Z12.31 Encounter for screening mammogram for malignant neoplasm of breast; Z13.820 Encounter for screening for osteoporosis; M81.0 Age-related osteoporosis without current pathological fracture
CPT/HCPCS: 77063; 77067; 77080

== ENCOUNTER → 2023-08-29 02:00 | Outpatient (CLI) | payer MEDICARE, OTHER, SELFPAY ==
--- NOTE | 2023-08-29 08:30 | DI.US_ITS ---
APPROVED REPORT EXAM: Comprehensive 2D, Doppler, and color-flow Echocardiogram Patient Location: Out-Patient [facility] Attendant: Carmen Darby RDCS (AE) Indications: Cardiac murmur unspecified Other Information Study Quality: Adequate Conclusion Normal left ventricular wall thickness and chamber size. EF is 60-65%, normal wall motion Normal right ventricular sie and function Both atria are mildly dilated Mildly sclerotic trileaflet aortic valve without stenosis or regurgitation Normal mitral valve with moderate regurgitation Normal tricuspid valve with moderate regurgitation. Estimated RVSP is 49 mmHg Wall motion Left Ventricle The left ventricle is normal size. The left ventricular systolic function is normal. The left ventric ular ejection fraction is within the normal range. There is normal left ventricular wall thickness. T here is normal LV segmental wall motion. There is no ventricular septal defect visualized. LVEF is 61 %. Right Ventricle The right ventricle is normal size. The right ventricular systolic function is normal. Atria Left atrium is mildly dilated. Right atrium is mildly dilated. The interatrial septum is intact with no evidence for an atrial septal defect. Aortic Valve The aortic valve is mildly sclerotic Aortic valve is trileaflet. There is no aortic valvular stenosis . No aortic regurgitation is present. Mitral Valve The mitral valve is normal in structure. No evidence of mitral valve stenosis. Moderate mitral regur gitation. Tricuspid Valve The tricuspid valve is normal in structure. There is no tricuspid valve stenosis. Moderate tricuspid regurgitation. The RVSP is 48.8mmHg. Pulmonic Valve The pulmonary valve is normal in structure. There is no pulmonic valvular stenosis. Trace pulmonic re gurgitation. Great Vessels The aortic root is normal in size. The ascending aorta is normal in size. Aortic arch is not well vis ualized. IVC is normal in size and collapses >50% with inspiration. Pericardium There is no pericardial effusion. 2D Dimensions IVSD d PLAX 0.89 cm F: 0.6-1.0 Ao Root d 3.04 cm F: 2.7 - 3.3 LVPW d PLAX 0.88 cm F: 0.6 - 1.0 Ao Asc Diam d 3.16 cm F: 2.3 - 3.1 LVID d PLAX 4.33 cm F: 3.8 - 5.2 LVDs 2.92 cm F: 2.2 - 3.5 LV EF Teichholz 61.3 % FS 32.64 % LV EDV (Teich) 84.4 mL LV ESV (Teich) 32.6 mL M-Mode TAPSE 2.69 cm (M/F) >1.7 Auto EF LV EDV A4C 75.2 mL LV EDV A2C 82.1 mL LV EDV BP 79.7 mL LV ESV A4C 30.1 mL LV ESV A2C 31.2 mL LV ESV BP 30.8 mL LVEF(%) A4C 59.9 % LVEF(%) A2C 62.1 % LVEF(%) BP 61.4 % LV SV A4C 45.1 ml LV SV A2C 51.0 ml LV SV BP 48.9 ml LV CO A4C 2.5 L/min LV CO A2C 3.0 L/min LV CO BP 2.7 L/min HR A4C 54.80 BPM HR A2C 58.73 BPM LV EDV Index (BP) LA Volume LA Length A4C 5.7 cm LA Length A2C 5.2 cm LA Area A4C s 22.32 cm2 LA Area A2C s 18.37 cm2 LA Vol A4C A-L 74.40 mL LA Vol A2C A-L 54.79 mL LA Vol Biplane A-L 66.6 mL LA Vol/BSA A4C A-L LA Vol/BSA A2C A-L LA Vol/BSA BP A-L 41.6 mL/m2 LA Vol A4C MOD 68.9 mL LA Vol A2C MOD 50.7 mL LA Vol BP MOD 61.3 mL RA Volume RA Area A4C 12.8 cm2 RA ESV A4C (A-L) 30.3mL RA Vol/BSA A4C A-L RA Length A4C 4.6 cm RA ESV A4C (MOD) 29.2mL LV Diastology MV E' medial 0.082 (>0.07 m/s) MV E Vmax 1.08 (0.4-1.3 m/s) MV E/E' MED 13.11 (<14) MV A Vmax 0.85 (0.4-1.3 m/s) MV E' lateral 0.097 (>0.1 m/s) E/A Ratio 1.3 MV E/E' LAT 11.06 (<14) MV E' Average 0.090 m/s MV E/E'(average) 12.00 Aortic Valve AoV Vmax 1.89 m/s LVOT Vmax 1.17 m/s AoV Peak Grad 14.3 mmHg LVOT Peak Grad 5.5 mmHg AoV Area (Vmax) 1.73 cm2 LVOT VTI 0.332 m AoV VTI 0.524 m LVOT Mean Grad 3.1 mmHg AoV Mean Dragan. 1.28 m/s LVOT SV 92.85 mL AoV Mean Grad 7.4 mmHg LVOT Diam s 1.85 cm AoV Area (VTI) 1.77 cm2 Velocity Ratio 0.62 Mitral Valve MV DT 208 (160-240 msec) MR Vmax 5.69 m/s MV Vmax TIPS 1.10 m/s MR VTI 2.264 m MV Mean Grad 1.7 (<2mmHg) MR Peak Grad 129.3 mmHg MV VTI 0.433 m MR Mean Grad 100.0 mmHg MR PISA Radius 0.38 cm MR Aliasing Velocity 0.36 m/s Pulmonary Valve PV Vmax 0.83 (0.5-1.5 m/s) RVOT Vmax 0.75 m/s PV Peak Grad 2.8 mmHg RVOT Peak Gr. 2.2 mmHg PV Mean Dragan 0.64 m/s RVOT VTI 0.212 m PV Mean Grad 1.8 mmHg RVOT Mean Gr. 1.4 mmHg Tricuspid Valve RA Pressure 3.00 mmHg TR Vmax 3.38 m/s TV S' 0.14 m/s TR Peak Grad 45.7 mmHg RVSP (TR) 48.8 mmHg
== END ==
PROVIDERS: PCP Nurse Practitioner Family; Visit Provider Nurse Practitioner Family
DX: R01.1 Cardiac murmur, unspecified (principal)
CPT/HCPCS: 93306

== ENCOUNTER 2023-09-20 04:54 | Outpatient (CLI) | payer MEDICARE, OTHER, SELFPAY ==
[2023-09-20 15:13] LABS: Magnesium 1.5 mg/dL (1.8-2.4); PHOSPHORUS 4.1 mg/dL (2.6-4.7)
[2023-09-20 15:37] LABS: Vitamin D 25 Total 29.6 ng/mL (30-100)
[2023-09-20 23:33] LABS: Parathyroid Hormone,Intact 43 pg/mL (19-88)
== END 2023-09-20 04:55 | disposition home or self-care (01) ==
LOC: LBO 04:54
PROVIDERS: PCP Nurse Practitioner Family; Visit Provider Nurse Practitioner Family
DX: M81.0 Age-related osteoporosis without current pathological fracture (principal)
CPT/HCPCS: 36415; 82306; 83735; 83970; 84100

== ENCOUNTER 2023-10-26 02:43 | Outpatient (CLI) | payer MEDICARE, OTHER, SELFPAY ==
[2023-10-26 14:35] LABS: Abs Immature Grans 0.04 10^3/uL (0.0-0.06); Absolute Basophil Count 0.07 10^3/uL (0.0-0.2); Absolute Eosinophil Count 0.85 10^3/uL (0.0-0.7); Absolute Lymphocyte Count 2.37 10^3/uL (1.2-3.4); Absolute Monocyte Count 0.87 10^3/uL (0.1-0.8); Basophils % 0.8 %; Eosinophils % 9.6 %; HCT 34.7 % (36.0-46.0); HGB 11.6 g/dL (11.2-15.7); Immature Grans % 0.4 %; Lymphocytes % 26.6 %; MCH 31.5 pg (27.0-33.0); MCHC 33.4 % (32.0-36.0); MCV 94 fL (80-95); MPV 9.5 fL (8.0-11.0); Monocytes % 9.8 %; Neutrophils % 52.8 %; Platelet Count 278 10^3/uL (130-400); RBC 3.68 10^6/uL (3.93-5.22); RDW 12.7 % (11.7-14.6); RDW-SD 44.3 fL
[2023-10-26 15:21] LABS: Albumin 3.4 g/dL (3.4-5.0); Anion Gap 12.5 mmol/L (3-11); BUN 36 mg/dL (7-18); CO2 23.5 mmol/L (21.0-32.0); CREATININE 1.7 mg/dL (0.55-1.02); Calcium 9.4 mg/dL (8.5-10.1); Chloride 102 mmol/L (98-107); Glucose 104 mg/dL (74-106); PHOSPHORUS 3.8 mg/dL (2.6-4.7); Potassium 4.1 mmol/L (3.5-5.1); Sodium 138 mmol/L (136-145)
[2023-10-26 15:24] LABS: Iron 54 ug/dL (50-170); Total Iron Binding Capacity 267 ug/dL (250-450); Transferrin Sat 20 % (15-50)
[2023-10-26 15:46] LABS: Vitamin D 25 Total 28.9 ng/mL (30-100)
[2023-10-26 15:56] LABS: Ferritin 123 ng/mL (8-252)
[2023-10-26 22:39] LABS: Parathyroid Hormone,Intact 41 pg/mL (19-88)
== END 2023-10-26 02:44 | disposition home or self-care (01) ==
LOC: LBO 02:44
PROVIDERS: PCP Nurse Practitioner Family; Visit Provider Nurse Practitioner
DX: N18.32 Chronic kidney disease, stage 3b (principal)
CPT/HCPCS: 36415; 80048; 82306; 82040; 82728; 83540; 83550; 83970; 84100; 85025

== ENCOUNTER 2023-12-06 12:45 | Emergency (ER) | payer MEDICARE, OTHER, SELFPAY ==
[2023-12-06] VITALS (30 sets, daily range): BP systolic 165–227; BP diastolic 43–65; PULSE 53–90; RESP 9–23; TEMP 36.8; O2SAT 98
--- NOTE | 2023-12-06 12:45 | RT.EKG_ITS ---
APPROVED REPORT Exam: Resting ECG Reason for Exam: trouble breathing Patient Location: E HR:67 bpm ECG Measurements Heart Rate 67 AXIS OH 166 P 74 QRSd 76 QRS 53 QT 438 T 57 QTc 463 Conclusion Sinus rhythm 67 normal axis no stemi
[2023-12-06 13:25] LABS: Abs Immature Grans 0.05 10^3/uL (0.0-0.06); Absolute Basophil Count 0.08 10^3/uL (0.0-0.2); Absolute Eosinophil Count 0.55 10^3/uL (0.0-0.7); Absolute Lymphocyte Count 2.09 10^3/uL (1.2-3.4); Absolute Monocyte Count 0.82 10^3/uL (0.1-0.8); Absolute Neutrophil Count 6.33 10^3/uL (1.2-6.7); Basophils % 0.8 %; Eosinophils % 5.5 %; HCT 37.4 % (36.0-46.0); HGB 12.6 g/dL (11.2-15.7); Immature Grans % 0.5 %; Lymphocytes % 21.1 %; MCH 31.2 pg (27.0-33.0); MCHC 33.7 % (32.0-36.0); MCV 93 fL (80-95); MPV 9.6 fL (8.0-11.0); Monocytes % 8.3 %; Neutrophils % 63.8 %; Platelet Count 267 10^3/uL (130-400); RBC 4.04 10^6/uL (3.93-5.22); RDW 12.4 % (11.7-14.6); RDW-SD 42.8 fL; WBC 9.92 10^3/uL (4.4-10.8)
[2023-12-06 13:48] LABS: ALT 22 U/L (14-59); AST 18 U/L (15-37); Albumin 3.8 g/dL (3.4-5.0); Alkaline Phosphatase 82 U/L (46-116); Anion Gap 13.4 mmol/L (3-11); BUN 36 mg/dL (7-18); Bilirubin, Total 0.67 mg/dL (0.2-1.0); CO2 21.6 mmol/L (21.0-32.0); CREATININE 1.7 mg/dL (0.55-1.02); Calcium 9.7 mg/dL (8.5-10.1); Chloride 103 mmol/L (98-107); Estimated GFR 30.32 (mL/min/1.73m2); Glucose 115 mg/dL (74-106); NT-proBNP 616 pg/mL (<300); Sodium 138 mmol/L (136-145); Total Protein 8.7 g/dL (6.4-8.2); Troponin I < 50 ng/L (< or =60)
[2023-12-06 13:55] LABS: D-Dimer 1276 ng/mlFEU (<500)
[2023-12-06] MEDS: Albuterol/Ipratropium 3 ML UPD VIAL UPD (13:57)
--- NOTE | 2023-12-06 14:00 | DI.CT_ITS ---
Exam(s) CT CHEST PE CTA EXAM: CT CHEST PE CTA CLINICAL HISTORY: shortness of breath, elevated ddimer. TECHNIQUE: Imaging Protocol: Axial CT angiography was performed with multi-slice acquisition and mu lti-planar and/or 3D reconstructions. CONTRAST MATERIAL: Intravenous: Omnipaque 350 contrast volume:100 mL COMPARISON: CR XR CHEST 2V PA LATERAL from 12/06/2023 FINDINGS: Tracheobronchial tree: Patent where visualized. Pulmonary parenchyma: No consolidation or dominant measurable mass. No architectural distortion. Calc ified granuloma are present. There are few scattered noncalcified pulmonary nodules. The largest me asures 3 mm. Pulmonary Arteries: No evidence of filling defect to suggest pulmonary emboli. Mediastinum and Lori: No dominant adenopathy or fluid collection. The esophagus is unremarkable. Th ere is a small hiatal hernia. Visualized thyroid gland: There is a 2.9 x 1.8 cm hypodense nodule in the right lobe of the thyroid g land. (Series 7, image 66). Nonemergent thyroid ultrasound is recommended for further evaluation. Pleura: No effusion or pneumothorax. Heart: The heart appears mildly enlarged. No coronary artery calcifications are seen. No pericardial effusion. Aorta: Thoracic aorta non-dilated. No evidence of dissection. Atherosclerotic calcifications are pres ent. Upper abdomen: Status post cholecystectomy. Bilateral simple renal cysts. No follow-up is recommen ded. Soft tissues: Unremarkable. Bones: Within normal limits for the patient's age.There are degenerative changes seen in the left marycarmen ulder. IMPRESSION: 1. No evidence of pulmonary embolism, thoracic aortic dissection or aneurysm. 2. 2.9 x 1.8 cm hypodense right thyroid nodule. Nonemergent thyroid ultrasound is recommended for fu rther evaluation. 3. A few scattered 3 mm pulmonary nodules. Solid nodules smaller than 6 mm do not require routine follow-up in all patients with high clinical r isk; however, some nodules smaller than 6 mm with suspicious morphology, upper lobe location, or both may warrant follow-up at 12 months (grade 2A; weak recommendation, high-quality evidence). (Hank et al., 2017) Single solid noncalcified nodules. ???Solid nodules smaller than 6 mm (those 5 mm or smaller) do not require routine follow-up in patients at low risk (grade 1C; strong recommendation, low- or very-low- quality evidence). (Hank et al., 2017) RADIATION DOSE DELIVERED: 298.33mGy.cm Total DLP DATA REPOSITORY: All CT scans at this facility are submitted to the National Radiology Data Registry (NRDR) Dose Index Registry (DIR) with the [employer] (ACR). RADIATION OPTIMIZATION: All CT scans at this facility use at least one of these dose optimization te chniques: automated exposure control; mA and/or kV adjustment per patient size (includes targeted exa ms where dose is matched to clinical indication); or iterative reconstruction.
--- NOTE | 2023-12-06 14:10 | DI.RAD_ITS ---
Exam(s) XR CHEST 2V PA LATERAL EXAM: XR CHEST 2V PA LATERAL CLINICAL HISTORY: shortness of breath TECHNIQUE: 2D digital imaging was performed of the chest. Two images were obtained. PA and lateral views were obtained. COMPARISON: CR,RF BARIUM SWALLOW UGI 2V CXR from 10/02/2016 FINDINGS: MEDIASTINUM: Normal. HEART: Normal. PULMONARY VASCULATURE: Normal. LUNGS: Lungs are hyperinflated with flattened diaphragms suggesting underlying COPD or air trapping. No focal consolidating infiltrates are present. PLEURAL SPACE: No pleural effusion or pneumothorax. BONE:Within normal limits for the patient's age. OTHER FINDINGS:Normal. IMPRESSION: No acute pulmonary findings. DATA REPOSITORY: RADIATION DOSE DELIVERED:
[2023-12-06] MEDS: Omnipaque 350 MG/ML 100 ML BTL IJ (14:40)
[2023-12-06 14:44] LABS: COVID-19 PCR Negative (Negative); Influenza A PCR Negative (Negative); Influenza B PCR Negative (Negative); RSV PCR Negative (Negative)
[2023-12-06] MEDS: Normal Saline - Diluent 50 ML VIAL IJ (14:44)
[2023-12-06 14:45] LABS: Source Nasopharynx
[2023-12-06 16:24] LABS: Troponin I < 50 ng/L (< or =60)
--- NOTE | 2023-12-06 16:44 | ED.GENADUL_ITS ---
Discharge Plan Disposition Patient Disposition: Home Condition: Stable Discharge Details Clinical Impression: Acute bronchitis Primary Care Provider: Jeimy Coleman ED Provider: Gila Mera Home Meds and New Rx's Prescriptions: New prednisone 20 mg tablet 40 mg PO ONCE Qty: 10 0RF Continued atenolol 25 mg tablet 25 mg PO HS atorvastatin 10 mg tablet 10 mg PO .qod amlodipine 5 MG tablet 5 mg PO HS levothyroxine 25 MCG tablet 25 mcg PO DAILY losartan-hydrochlorothiazide 1 EACH tablet 1 tab-cap PO HS aspirin 81 MG tablet,chewable 81 mg PO DAILY calcium-vitamin D3-vitamin K 1 EACH tablet,chewable 1 ea PO DAILY Discharge Instructions Instructions: Acute bronchitis Additional Instructions: Take the prednisone as prescribed Use the albuterol, 2 puffs every 4-6 hours, always use your spacer with the albuterol inhaler Follow-up with your doctor tomorrow and return earlier with fever, chills, worsening shortness of breath, or should you have new or worsening complaints Referrals: Jeimy Coleman [Primary Care Provider] - 1 day Discharge Data Discharge Date/Time-TO BE ENTERED AT DEPARTURE: 12/06/23 17:06 HPI General Date/Time Provider Initiated Documentation: 12/06/23 13:06 . HPI Narrative: This 78-year-old female with history of hypothyroidism hyperlipidemia, GERD, hypertension presents with report of acute onset shortness of breath while dusting at a low speed today. Denies any associated chest discomfort. States she has had a cough for the past 24 hours. Denies any fever or chills. Denies any diaphoresis. Denies any calf pain or swelling, recent flights, surgeries, long drives. States she had almost complete resolution of symptoms and is feeling well at this time. Denies history of coagulopathy. Denies known sick contacts or hemoptysis. Denies history of coronary artery disease or tobacco use. Related Data Home Medications Medication Instructions Recorded Confirmed amlodipine 5 mg tablet 5 mg PO HS 04/21/16 12/06/23 aspirin 81 mg chewable tablet 81 mg PO DAILY 04/21/16 12/06/23 calcium-vitamin D3-vitamin K 500 1 ea PO DAILY 04/21/16 12/06/23 mg-1,000 unit-40 mcg chewable tablet levothyroxine 25 mcg tablet 25 mcg PO DAILY 04/21/16 12/06/23 losartan 100 1 tab-cap PO HS 04/21/16 12/06/23 mg-hydrochlorothiazide 25 mg tablet atenolol 25 mg tablet 25 mg PO HS 02/08/22 12/06/23 atorvastatin 10 mg tablet 10 mg PO .qod 02/08/22 12/06/23 prednisone 20 mg tablet 40 mg (2 x 20 mg) PO ONCE #10 tabs 12/06/23 Previous Rx's Medication Instructions Recorded prednisone 20 mg tablet 40 mg (2 x 20 mg) PO ONCE #10 tabs 12/06/23 Allergies Allergy/AdvReac Type Severity Reaction Status Date / Time morphine Allergy Mild Itching Verified 12/06/23 15:24 mannitol [From Reclast] AdvReac Intermediate eye Unverified 12/06/23 15:24 inflammation water for injection,sterile AdvReac Intermediate eye Unverified 12/06/23 15:24 [From Reclast] inflammation zoledronic acid AdvReac Intermediate eye Unverified 12/06/23 15:24 [From Reclast] inflammation General Stated Complaint: SOB/SuddenOnset SHIV: 3 Exam Narrative Exam Narrative: Alert and oriented, no acute distress, no scleral icterus, lungs with crackles at bases, no respiratory distress, cardiac rate rhythm regular, no murmurs or rubs, no abdominal tenderness, no peripheral edema, distal pulses intact Course Vital Signs Vital signs: Vital Signs Temperature 36.8 C 12/06/23 12:48 Pulse 60 12/06/23 12:48 Respiratory Rate 18 12/06/23 12:48 Blood Pressure 226/60 H 12/06/23 12:48 Pulse Oximetry 98 12/06/23 12:48 Temperature 36.8 C 12/06/23 12:48 Temperature Source Temporal Artery Scan 12/06/23 12:48 Pulse 67 12/06/23 15:16 Pulse 62 12/06/23 15:20 Respiratory Rate 15 12/06/23 15:20 Respiratory Effort Normal 12/06/23 15:24 Respiratory Depth Normal 12/06/23 15:24 Respiratory Pattern Normal 12/06/23 15:24 Blood Pressure 168/48 H 12/06/23 15:16 Blood Pressure Mean 91 12/06/23 15:16 Blood Pressure Position Sitting 12/06/23 12:48 Pulse Oximetry 98 12/06/23 15:24 Oxygen Delivery Method Room Air 12/06/23 12:48 Oxygen Flow Rate 0 12/06/23 12:48 Pain Level 0 12/06/23 12:48 Lab/Test Results Lab/Test Results: Laboratory Tests Range/Units 12/06/23 12/06/23 12/06/23 13:00 13:54 16:00 WBC (4.4-10.8) 10^3/uL 9.92 RBC (3.93-5.22) 10^6/uL 4.04 Hgb (11.2-15.7) g/dL 12.6 Hct (36.0-46.0) % 37.4 MCV (80-95) fL 93 MCH (27.0-33.0) pg 31.2 MCHC (32.0-36.0) % 33.7 RDW (11.7-14.6) % 12.4 Plt Count (130-400) 10^3/uL 267 MPV (8.0-11.0) fL 9.6 Immature Gran % % 0.5 Neutrophils % % 63.8 Lymphocytes % % 21.1 Monocytes % % 8.3 Eosinophils % % 5.5 Basophils % % 0.8 Nucleated RBC % (0.0-0.3) % 0.0 Absolute Neutrophils (1.2-6.7) 10^3/uL 6.33 Absolute Lymphocytes (1.2-3.4) 10^3/uL 2.09 Absolute Monocytes (0.1-0.8) 10^3/uL 0.82 H Absolute Eosinophils (0.0-0.7) 10^3/uL 0.55 Absolute Basophils (0.0-0.2) 10^3/uL 0.08 D-Dimer (<500) ng/mlFEU 1276 H Sodium (136-145) mmol/L 138 Potassium (3.5-5.1) mmol/L 4.0 Chloride (98-107) mmol/L 103 Carbon Dioxide (21.0-32.0) mmol/L 21.6 Anion Gap (3-11) mmol/L 13.4 H BUN (7-18) mg/dL 36 H Creatinine (0.55-1.02) mg/dL 1.7 H Est GFR (CKD-EPI 2020) (mL/min/1.73m2) 30.32 Glucose (74-106) mg/dL 115 H Calcium (8.5-10.1) mg/dL 9.7 Total Bilirubin (0.2-1.0) mg/dL 0.67 AST (15-37) U/L 18 ALT (14-59) U/L 22 Alkaline Phosphatase (46-116) U/L 82 Troponin I (< or =60) ng/L < 50 < 50 NT-Pro-B Natriuret Pep (<300) pg/mL 616 H Total Protein (6.4-8.2) g/dL 8.7 H Albumin (3.4-5.0) g/dL 3.8 COVID-19 Source Nasopharynx SARS-CoV-2 (PCR) (Negative) Negative Influenza Type A (PCR) (Negative) Negative Influenza Type B (PCR) (Negative) Negative RSV (PCR) (Negative) Negative Medical Decision Making 78-year-old female in no acute distress, given age and comorbidities I did order BMP, troponin, diagnostic labs including D-dimer, D-dimer was elevated at 1200s I did order CTA of patient's chest, baseline creatinine of 1.7 with GFR of 30, discussed risk benefit of CTA and patient is aware there are small risk of worsening of renal disease, patient is agreeable to accepting these risks Patient is aware of the thyroid nodule, she will follow-up with her doctor regarding the thyroid nodule that was incidentally seen on the CTA. CTA without of any evidence of pulmonary embolism or more ominous pathologies. Troponin negative x 2 without any chest pain or EKG changes. Patient did have some mild wheezing on exam and improved dramatically after neb treatment, will initiate prednisone and treat empirically for bronchitis. No indication for antibiotics at this time. Oxygen saturations with ambulatory trial 96%, speaking in complete sentences and ambulatory to restroom. Patient at this time feels comfortable with discharge home, she is encouraged to follow-up with her primary care physician. Did consider CHF, however I see no clear evidence that patient is in CHF, she has no peripheral edema or evidence of CHF on imaging. No evidence of PE on CTA. Low suspicion clinically for coronary artery disease non-ST elevation OK with negative troponin and exam in the absence of any chest discomfort. Recheck in 24 to 48 hours encouraged and return precautions reviewed in detail. Quality:SDOH Health Related Social Needs: No Data to Display PFSH All Active Problems (Updated 12/06/23 @ 16:45 by KELLY Rodriguez) Acute bronchitis (Acute) Tubular adenoma (Acute ~02/16/22) Rectal polyp (Acute) Screening for colon cancer (Acute) Globus sensation (Acute) Medical History (Updated 12/06/23 @ 16:45 by KELLY Rodriguez) Tubular adenoma of colon (07/03/16) Hypertension GERD (gastroesophageal reflux disease) Hyperplastic colon polyp Hypothyroidism Hyperlipidemia Osteoporosis Hx of renal insufficiency syndrome Pain of left heel Surgical History (Updated 03/03/22 @ 15:06 by Veronique Faustin RN) History of colonoscopy with polypectomy (~02/16/22) Oophrectomy, Both Abdominal hysterectomy EGD - IV Sedation 2011 Colonoscopy - IV Sedation (07/03/16) 2006 Cholecystectomy 2006 Social History Smoking/Tobacco Use Status: Never Smoking risk assessment performed?: Yes Alcohol Intake: never Drug use: Never Substance use type: does not use Do you feel safe at home: Yes Do you feel safe in your relationship?: Yes
[2023-12-06] MEDS: Albuterol HFA 8 GM 60 PUFF INH IH (17:02)
[2023-12-06] MEDS: Inhaler, Assist Device 1 EACH MC (17:02)
[2023-12-06] MEDS: predniSONE 20 MG TAB 40 MG PO (17:03)
== END 2023-12-06 17:06 | disposition home or self-care (01) ==
PROVIDERS: Emergency Provider Physician Assistant; PCP Nurse Practitioner Family
DX: J20.9 Acute bronchitis, unspecified (principal)
CPT/HCPCS: 36415; 71275; 80053; 87637; 93005; 94640; 99285; 71046; 83880; 84484; 85025; 85379; 93010; 99284; J3490; J7512; J7620

== ENCOUNTER 2023-12-17 03:45 | Outpatient (CLI) | payer MEDICARE, OTHER, SELFPAY ==
[2023-12-17 12:34] LABS: Abs Immature Grans 0.07 10^3/uL (0.0-0.06); Absolute Basophil Count 0.03 10^3/uL (0.0-0.2); Absolute Eosinophil Count 0.71 10^3/uL (0.0-0.7); Absolute Lymphocyte Count 2.99 10^3/uL (1.2-3.4); Absolute Monocyte Count 0.98 10^3/uL (0.1-0.8); Absolute Neutrophil Count 5.05 10^3/uL (1.2-6.7); Basophils % 0.3 %; Eosinophils % 7.2 %; HCT 34.2 % (36.0-46.0); HGB 11.9 g/dL (11.2-15.7); Immature Grans % 0.7 %; Lymphocytes % 30.4 %; MCH 31.7 pg (27.0-33.0); MCHC 34.8 % (32.0-36.0); MCV 91 fL (80-95); MPV 10.2 fL (8.0-11.0); Neutrophils % 51.4 %; Platelet Count 281 10^3/uL (130-400); RBC 3.75 10^6/uL (3.93-5.22); RDW 12.5 % (11.7-14.6); RDW-SD 41.6 fL; WBC 9.83 10^3/uL (4.4-10.8)
[2023-12-17 13:37] LABS: Albumin 3.1 g/dL (3.4-5.0); Anion Gap 8.9 mmol/L (3-11); BUN 51 mg/dL (7-18); CO2 27.1 mmol/L (21.0-32.0); Calcium 9.6 mg/dL (8.5-10.1); Chloride 103 mmol/L (98-107); Estimated GFR 24.94 (mL/min/1.73m2); Glucose 103 mg/dL (74-106); PHOSPHORUS 3.8 mg/dL (2.6-4.7); Potassium 3.5 mmol/L (3.5-5.1); Sodium 139 mmol/L (136-145)
[2023-12-17 13:40] LABS: Iron 56 ug/dL (50-170); Total Iron Binding Capacity 276 ug/dL (250-450); Transferrin Sat 20 % (15-50)
[2023-12-17 14:12] LABS: Ferritin 167 ng/mL (8-252); Vitamin D 25 Total 34.5 ng/mL (30-100)
[2023-12-17 14:44] LABS: Bilirubin Negative (Negative); Blood Negative (Negative); Clarity Clear (Clear); Glucose Negative (Negative); Ketones Negative (Negative); Leukocyte Esterase Trace (Negative); Nitrite Negative (Negative); Urobilinogen 0.2 mg/dL (Up to 0.2); pH 5.5 (5-8)
[2023-12-17 14:54] LABS: Bacteria Few HPF (Negative); C & S Indicated? No/Sq. Contamination; Epithelial Cells Many HPF (Negative); Mucus Trace (Negative); RBC 0-2 HPF (0-2)
[2023-12-17 15:49] LABS: COMMENT (LAB VIEW ONLY) 164.15 mg/dL; PROTEIN 12.6 mg/dL; Prot/Crea Ur Ratio 0.07
[2023-12-17 22:35] LABS: Parathyroid Hormone,Intact 26 pg/mL (19-88)
== END 2023-12-17 03:46 | disposition home or self-care (01) ==
LOC: LBO 03:45
PROVIDERS: PCP Nurse Practitioner Family; Visit Provider Nurse Practitioner
DX: N18.32 Chronic kidney disease, stage 3b (principal)
CPT/HCPCS: 36415; 80048; 82306; 81003; 81015; 82040; 82565; 82728; 83540; 83550; 83970; 84100; 84156; 85025

== ENCOUNTER → 2023-12-19 01:55 | Outpatient (CLI) | payer MEDICARE, OTHER, SELFPAY ==
--- NOTE | 2023-12-19 | DI.US_ITS ---
Exam(s) US THYROID EXAM: US THYROID CLINICAL HISTORY: Nontoxic single thyroid nodule, E04.1. TECHNIQUE: Ultrasound thyroid performed using standard protocol. COMPARISON: US US ECHOCARDIOGRAM from 08/29/2023 FINDINGS: Thyroid lobes exhibit normal size, as is the isthmus. There are 2 nodules in the right lobe and 1 in the isthmus. No nodules seen in the left lobe. RIGHT THYROID LOBE: Measures 2.1 cm AP x 0.9 cm wide x 5.0 cm craniocaudal Nodule #1 there is a dominant solid nodule in the right lobe. This nodule measures 2.7 x 1.8 x 2.0 cm TiRads grading for this nodule is as follows: Composition: Solid-2 points Echogenicity: Isoechoic to the remainder of the gland-1 point Shape: Wider than taller-0 points Margin: Smooth- 0 points Echogenic Foci: None or large comet-tail artifact- 0 points Total Points for this nodule: 3 ACR Ti-Rads Category: TR3 This nodule should undergo ultrasound-guided FNA as it measures greater than 2.5 cm. Nodule #2. This is located above the other nodule Size: Measures 1.3 x 0.7 by 1.1 cm Composition: Mixed cystic-solid- 1 point Echogenicity: Isoechoic-1 Shape: Wider than taller- 0 points Margin: Smooth-0 Echogenic Foci: None-0 Total points for this nodule: 2 ACR Ti-Rads Category: TR2 This finding does not require ultrasound-guided FNA ISTHMUS: There is a nodule at the mid isthmus level which measures 0.4 x 0.2 x 0.4 cm. Grading of this nodule is as follows: Composition: Solid-2 points Echogenicity: Hypoechoic-2 points Shape: Wider than taller in the transverse plane-0 points Margins: Smooth-0 points Echogenic foci: None-0 points Total points for this nodule = 4 therefore this is a TR 4 level nodule which does not require biopsy as it measures less than 1.5 cm. LEFT THYROID LOBE: Measures 1.4 cm AP x 1.0 wide x 3.5 cm craniocaudal There are no nodules in the left lobe LYMPH NODES: There is no significant adenopathy. IMPRESSION: 1. Nodules as described individually above. The dominant nodule in the right lobe which measures 2.7 x 1.8 x 2.0 cm requires ultrasound-guided FNA as it scores as a TR 3 level nodule and measures great er than 2.5 cm. 2. Other nodules can be watched conservatively. 3. There is no significant lymphadenopathy. DATA REPOSITORY:
== END ==
PROVIDERS: PCP Nurse Practitioner Family; Visit Provider Nurse Practitioner Family
DX: E04.2 Nontoxic multinodular goiter (principal)
CPT/HCPCS: 76536

== ENCOUNTER 2024-03-18 01:33 | Outpatient (CLI) | payer MEDICARE, OTHER, SELFPAY ==
--- NOTE | 2024-03-18 06:45 | DI.US_ITS ---
Exam(s) US NEEDLE LOCAL OTHER WO RAD EXAM: TR 3, 2.7 cm nodule, right thyroid lobe,ultrasound guided bx,e04.1 COMPARISON: No exams were available for comparison TECHNIQUE: Ultrasound performed using standard protocol. FINDINGS: Sonography was provided for Dr. Douglas during the performance of a biopsy of a right thyroid nodule. Please refer to the procedure report for complete details. DATA REPOSITORY:
--- NOTE | 2024-03-18 11:30 | PAPNONF_PTH ---
PATIENT: Meeta Ch LOC: [facility] U#:[id number] AGE/SX: 78/F ROOM: RE03/18/[address]: Antonio Douglas MD : [id number] BED: DIS: 03/18/2024 SPEC #: [id number] RECD: 03/18/24 13:01 STATUS: TSERING REQ #: [id number] JOSH: 03/18/24 11:[address]: Antonio Douglas [facility] Cytology RECD BY: Gila Pino ENTERED: 03/18/24 13:02 SP TYPE: ISAIAH JUAREZ DR: Heather Terry Tissues: 1 - BODY FLUID CYTO-FINE NEEDLE [facility] Procedures: BODY FLUID CYTO-FINE NEEDLE [facility]IR[facility] Comments: [id number] (PATH FNA CONSULT) (REFRIGERATED)
--- NOTE | 2024-03-18 12:10 | W.PROCNOTE ---
Date of service: 03/18/24 Time of Service: 12:11 Procedure Note Date of procedure: 03/18/24 Procedure: Ultrasound-guided FNA, right thyroid nodule, pathology present Surgeon/Proceduralist/Physician: Antonio Douglas Procedure Diagnosis: Right thyroid nodule Procedure Indications: The patient has a right-sided thyroid nodule meeting criteria for biopsy. She has a second thyroid nodule on the side that does not meet criteria for biopsy. Options were explained to the patient regarding further management. She wished to undergo the above procedure. Risks and benefits were discussed at length. Consent was obtained. Procedure Description: The patient was positioned in supine position with her neck slightly extended. She was prepped and draped in appropriate fashion and ultrasound used to localize the nodule of concern. 1% lidocaine with 1/100,000 epinephrine was injected in the skin and subcutaneous tissues overlying the thyroid nodule and then a 25-gauge needle passed into the thyroid nodule repeatedly. 3 passes were necessary to reach cellular adequacy. Once been accomplished, 2 additional passes were made for potential Afirma testing. She tolerated this procedure well. There was no significant bleeding. A sterile dressing was applied. She was then allowed to sit, stand, and ambulate. Her vital signs remained stable. I was present throughout the entire case. She will remove the bandage tonight and not replace it. She will call with any signs of infection. She may use ibuprofen or Tylenol for any discomfort. She will call if she does not hear from me within 1 week or if she has any other concerns in the meantime. She had no further questions. She is comfortable with this plan.
== END 2024-03-18 01:53 ==
LOC: DI 01:33
PROVIDERS: PCP Nurse Practitioner Family; Visit Provider Otolaryngology
DX: E04.1 Nontoxic single thyroid nodule (principal)
CPT/HCPCS: 10005; 76942; 88104

== ENCOUNTER 2024-07-16 10:49 | Outpatient (CLI) | payer MEDICARE, OTHER, SELFPAY ==
[2024-07-16 11:00] LABS: Abs Immature Grans 0.03 10^3/uL (0.0-0.06); Absolute Basophil Count 0.08 10^3/uL (0.0-0.2); Absolute Eosinophil Count 0.57 10^3/uL (0.0-0.7); Absolute Monocyte Count 0.76 10^3/uL (0.1-0.8); Absolute Neutrophil Count 3.91 10^3/uL (1.2-6.7); Eosinophils % 7.5 %; HCT 35.8 % (36.0-46.0); HGB 11.9 g/dL (11.2-15.7); Immature Grans % 0.4 %; Lymphocytes % 30.1 %; MCH 31.6 pg (27.0-33.0); MCHC 33.2 % (32.0-36.0); MCV 95 fL (80-95); MPV 9.6 fL (8.0-11.0); Monocytes % 9.9 %; Neutrophils % 51.1 %; Platelet Count 238 10^3/uL (130-400); RBC 3.76 10^6/uL (3.93-5.22); RDW 12.6 % (11.7-14.6); RDW-SD 43.8 fL; WBC 7.65 10^3/uL (4.4-10.8)
[2024-07-16 11:14] LABS: Albumin 3.3 g/dL (3.4-5.0); Anion Gap 7.6 mmol/L (3-11); BUN 33 mg/dL (7-18); CO2 28.4 mmol/L (21.0-32.0); CREATININE 1.7 mg/dL (0.55-1.02); Calcium 9.5 mg/dL (8.5-10.1); Chloride 106 mmol/L (98-107); Estimated GFR 30.32 (mL/min/1.73m2); Glucose 118 mg/dL (74-106); Magnesium 1.1 mg/dL (1.8-2.4); PHOSPHORUS 3.6 mg/dL (2.6-4.7); Potassium 3.8 mmol/L (3.5-5.1); Sodium 142 mmol/L (136-145)
[2024-07-16 11:29] LABS: Iron 102 ug/dL (50-170); Total Iron Binding Capacity 269 ug/dL (250-450); Transferrin Sat 38 % (15-50)
[2024-07-16 11:47] LABS: Ferritin 83 ng/mL (8-252); Vitamin D 25 Total 33.1 ng/mL (30-100)
== END 2024-07-16 10:50 | disposition home or self-care (01) ==
LOC: LBO 10:50
PROVIDERS: PCP Nurse Practitioner Family; Visit Provider Nurse Practitioner
DX: N18.32 Chronic kidney disease, stage 3b (principal)
CPT/HCPCS: 36415; 80048; 82306; 82040; 82728; 83540; 83550; 83735; 83970; 84100; 85025

== ENCOUNTER 2024-08-06 11:27 | Outpatient (CLI) | payer MEDICARE, OTHER, SELFPAY ==
[2024-08-06 11:43] LABS: Anion Gap 8.2 mmol/L (3-11); BUN 38 mg/dL (7-18); CO2 28.8 mmol/L (21.0-32.0); Chloride 105 mmol/L (98-107); Estimated GFR 24.94 (mL/min/1.73m2); Glucose 102 mg/dL (74-106); Magnesium 1.7 mg/dL (1.8-2.4); Potassium 4.3 mmol/L (3.5-5.1); Sodium 142 mmol/L (136-145)
== END 2024-08-06 11:28 | disposition home or self-care (01) ==
LOC: LBO 11:27
PROVIDERS: PCP Nurse Practitioner Family; Visit Provider Nurse Practitioner
DX: N18.32 Chronic kidney disease, stage 3b (principal)
CPT/HCPCS: 36415; 80048; 83735

== ENCOUNTER 2024-10-01 00:34 | Outpatient (CLI) | payer MEDICARE, OTHER, SELFPAY ==
--- NOTE | 2024-10-01 | DI.MAMMO_ITS ---
Exam(s) MAMMO SCREENING EXAM: MAMMO SCREENING CLINICAL HISTORY: Z12.31 Screening TECHNIQUE: Mammograms were interpreted according to the usual protocol including computer analysis w [employer] CAD system, tomosynthesis and C-view imaging. COMPARISON: 2014 through 2023 FINDINGS: The breasts are composed of scattered fibroglandular densities, Breast Density category B. No suspicious masses or suspicious microcalcifications are seen. Stable circumscribed nodule again n oted in the medial right breast. No skin thickening or abnormal axillary lymph nodes are seen. There has been no significant change from prior exams. IMPRESSION: BI-RADS Category 2 - Benign Findings Yearly screening mammography is recommended. Breast Density - Category B, scattered fibroglandular densities. A negative radiographic report should not delay biopsy if a dominant or clinically suspicious mass is present. Up to ten percent of cancers are not identified on mammography. A negative report may reinforce clinical impression. Adenosis and dense breasts may obscure an underlying neoplasm. False positive reports average 6 to 10%. Patient will receive a letter notifying them of these results.
== END 2024-10-01 00:54 ==
LOC: DI 00:35
PROVIDERS: PCP Nurse Practitioner Family; Visit Provider Nurse Practitioner Family
DX: Z12.31 Encounter for screening mammogram for malignant neoplasm of breast (principal); R92.323 Mammographic fibroglandular density, bilateral breasts; D24.1 Benign neoplasm of right breast
CPT/HCPCS: 77063; 77067

== ENCOUNTER 2024-11-07 14:53 | Outpatient (REF) | payer MEDICARE, OTHER, SELFPAY ==
[2024-11-07 16:38] LABS: FREE T4 1.19 ng/dL (0.76-1.46); Magnesium 1.2 mg/dL (1.8-2.4); TSH 5.06 uIU/mL (0.36-3.74)
[2024-11-07 16:59] LABS: Calculated LDL 61 mg/dL (<100); Cholesterol 127 mg/dL (<200); HDL Cholesterol 46 mg/dL (>or=50); Triglyceride 104 mg/dL (<150)
[2024-11-07 23:16] LABS: Hepatitis C Ab w Rflx HCV PCR Negative (Negative)
== END 2024-11-07 14:54 | disposition home or self-care (01) ==
LOC: NCHCN 14:53
PROVIDERS: PCP Nurse Practitioner Family; Visit Provider Nurse Practitioner Family
DX: E78.5 Hyperlipidemia, unspecified (principal); E83.42 Hypomagnesemia; E03.9 Hypothyroidism, unspecified; Z11.59 Encounter for screening for other viral diseases
CPT/HCPCS: 80061; 86803; 83735; 84439; 84443

== ENCOUNTER 2025-01-22 00:59 | Outpatient (CLI) | payer MEDICARE, OTHER, SELFPAY ==
[2025-01-22 13:20] LABS: Abs Immature Grans 0.02 10^3/uL (0.0-0.06); HCT 35.0 % (36.0-46.0); HGB 11.8 g/dL (11.2-15.7); Immature Grans % 0.3 %; MCH 31.8 pg (27.0-33.0); MCHC 33.7 % (32.0-36.0); MCV 94 fL (80-95); MPV 10.0 fL (8.0-11.0); Platelet Count 233 10^3/uL (130-400); RBC 3.71 10^6/uL (3.93-5.22); RDW 12.7 % (11.7-14.6); RDW-SD 44.0 fL; WBC 7.94 10^3/uL (4.4-10.8)
[2025-01-22 14:03] LABS: Iron 87 ug/dL (50-170); Total Iron Binding Capacity 290 ug/dL (250-450); Transferrin Sat 30 % (15-50)
[2025-01-22 14:15] LABS: Albumin 3.5 g/dL (3.4-5.0); Anion Gap 10.9 mmol/L (3-11); BUN 32 mg/dL (7-18); CO2 23.1 mmol/L (21.0-32.0); Calcium 9.7 mg/dL (8.5-10.1); Chloride 103 mmol/L (98-107); Estimated GFR 38.03 (mL/min/1.73m2); Glucose 109 mg/dL (74-106); Magnesium 1.8 mg/dL (1.8-2.4); Potassium 4.4 mmol/L (3.5-5.1); Sodium 137 mmol/L (136-145)
[2025-01-22 14:49] LABS: Ferritin 84 ng/mL (8-252); Vitamin D 25 Total 36 ng/mL (30-100)
== END 2025-01-22 01:00 | disposition home or self-care (01) ==
LOC: LBO 00:59
PROVIDERS: PCP Nurse Practitioner Family; Visit Provider Nurse Practitioner
DX: N18.32 Chronic kidney disease, stage 3b (principal)
CPT/HCPCS: 36415; 80048; 82306; 82040; 82565; 82728; 83540; 83550; 83735; 83970; 84100; 84156; 85025

== ENCOUNTER 2025-03-03 13:35 | Emergency (ER) | payer MEDICARE, OTHER, SELFPAY ==
[2025-03-03] VITALS (11 sets, daily range): BP systolic 147–174; BP diastolic 77–81; PULSE 48–56; RESP 9–18; TEMP 36.8; O2SAT 98–99
--- NOTE | 2025-03-03 16:00 | DI.CT_ITS ---
Exam(s) CT HEAD WO EXAM: CT HEAD WO CLINICAL HISTORY: new onset tremors. TECHNIQUE: Imaging Protocol: Axial computed tomography images with coronal and sagittal reformatted images were created and reviewed COMPARISON: No exams were available for comparison FINDINGS: Exam is mildly limited by motion. Ventricles and Extra axial spaces: Normal in size and morphology for the patient's age. Hemorrhage: None. Cerebral parenchyma: No evidence of acute infarct or mass. No significant atrophy. No significant white matter changes. Midline shift: None. Brainstem/Cerebellum: Normal. Bones: No skull or facial fractures. Hyperostosis frontalis interna. Visualized Paranasal sinuses:Clear. Mastoids: Clear. Soft Tissues: Unremarkable. ORBITS: Unremarkable. PITUITARY: Not enlarged. IMPRESSION: No acute intracranial process. RADIATION DOSE DELIVERED: Total DLP DATA REPOSITORY: All CT scans at this facility are submitted to the National Radiology Data Registry (NRDR) Dose Index Registry (DIR) with the [employer] (ACR). RADIATION OPTIMIZATION: All CT scans at this facility use at least one of these dose optimization techniques: automated exposure control; mA and/or kV adjustment per patient size (includes targeted exams where dose is matched to clinical indication); or iterative reconstruction.
--- NOTE | 2025-03-03 16:00 | RT.EKG_ITS ---
APPROVED REPORT Exam: Resting ECG Reason for Exam: fatigue Patient Location: E HR:53 bpm ECG Measurements Heart Rate 53 AXIS OK 168 P 55 QRSd 79 QRS 11 QT 438 T 27 QTc 412 Conclusion Sinus bradycardia...rate< 60 Normal [place]/Interval No acute ST changes
[2025-03-03 16:20] LABS: Abs Immature Grans 0.05 10^3/uL (0.0-0.06); HCT 35.6 % (36.0-46.0); HGB 12.0 g/dL (11.2-15.7); Immature Grans % 0.5 %; MCH 31.8 pg (27.0-33.0); MCHC 33.7 % (32.0-36.0); MCV 94 fL (80-95); MPV 10.5 fL (8.0-11.0); Platelet Count 270 10^3/uL (130-400); RBC 3.77 10^6/uL (3.93-5.22); RDW 12.8 % (11.7-14.6); RDW-SD 44.5 fL; WBC 11.05 10^3/uL (4.4-10.8)
[2025-03-03 16:26] LABS: Glucose Negative (Negative)
[2025-03-03 16:46] LABS: RBC 0-2 HPF (0-2); WBC 0-2 HPF (0-5)
[2025-03-03 16:47] LABS: Ammonia 10 umol/L (11-32)
[2025-03-03 17:03] LABS: ALT 154 U/L (14-59); AST 37 U/L (15-37); Albumin 3.7 g/dL (3.4-5.0); Alkaline Phosphatase 142 U/L (46-116); Anion Gap 13.0 mmol/L (3-11); BUN 27 mg/dL (7-18); Bilirubin, Total 0.6 mg/dL (0.2-1.0); CO2 20.0 mmol/L (21.0-32.0); Calcium 9.8 mg/dL (8.5-10.1); Chloride 106 mmol/L (98-107); Estimated GFR 32.40 (mL/min/1.73m2); Glucose 106 mg/dL (74-106); Magnesium 1.4 mg/dL (1.8-2.4); Potassium 4.1 mmol/L (3.5-5.1); Sodium 139 mmol/L (136-145); TSH (W/Ref FT4) 3.52 uIU/mL (0.36-3.74); Total Protein 8.1 g/dL (6.4-8.2); Troponin I 12 ng/L (<or=51)
[2025-03-03 17:20] LABS: Creatine Kinase 50 U/L (26-192); Lipase 49 U/L (<78)
[2025-03-03] MEDS: Magnesium Oxide 400 MG TAB PO (17:49)
[2025-03-03] MEDS: MAGNESIUM SULFATE 2 GM/50 ML BAG IV_INF (17:49)
--- NOTE | 2025-03-03 18:44 | W.ED.GENAD ---
Discharge Plan Disposition Patient Disposition: Home Condition: Stable Discharge Details Clinical Impression: Hypomagnesemia Primary Care Provider: Heather Terry ED Provider: Jesse Poole Home Meds and New Rx's Prescriptions: Continued cholecalciferol (vitamin D3) [Vitamin D3] 25 mcg (1,000 unit) capsule 25 mcg PO DAILY atenolol 25 mg tablet 25 mg PO HS atorvastatin 10 mg tablet 10 mg PO .qod amlodipine 5 MG tablet 5 mg PO HS levothyroxine 25 MCG tablet 25 mcg PO DAILY losartan-hydrochlorothiazide 1 EACH tablet 1 tab-cap PO HS aspirin 81 MG tablet,chewable 81 mg PO DAILY calcium-vitamin D3-vitamin K 1 EACH tablet,chewable 1 ea PO DAILY latanoprost 0.005 % drops 1 drp ophthalmic (eye) DAILY simethicone [Gas Relief (simethicone)] 125 mg capsule 125 mg PO QD-BID PRN nadolol 20 mg tablet 20 mg PO DAILY losartan 100 mg tablet 100 mg PO DAILY albuterol sulfate [Ventolin HFA] 90 mcg/actuation HFA aerosol inhaler 2 puff inhalation Q4H PRN magnesium oxide 400 mg magnesium tablet 400 mg PO BID prednisone 20 mg tablet 40 mg PO ONCE Qty: 10 0RF Discharge Instructions Instructions: Hypomagnesemia Additional Instructions: You were seen in the emergency department for your mild tremor as well as your low magnesium, your laboratory workup is negative your CT head shows no acute abnormality, these tremors could be linked to your low magnesium, please try to eat a healthy diet and stay well-hydrated, you may need to return should this become worse and you develop fever chest or abdominal pain or any other emergent concerns. Please take your at home magnesium supplements regularly. Referrals: Heather Terry [Primary Care Provider, Medicine] Discharge Data Discharge Date/Time-TO BE ENTERED AT DEPARTURE: 03/03/25 19:49 HPI General Date/Time Provider Initiated Documentation: 03/03/25 13:54. HPI Narrative: 79 year-old female presents to ED today by POV/ambulating with a chief complaint of new onset of some tremors/shakes, and some shortness of breath/fatigue with exertion with onset noted today. Quality described as shakiness, no radiation to chest pain, abdominal pain, nausea/vomiting. Severity is described as not painful. Palliating factors include nothing attempted. Provoking factors include nothing specific. Events leading up to the incident/Associated Symptoms: Patient wonders if this could relate to low magnesium as she's had this in the past. Patient not anticoagulated. Related Data Home Medications ?Medication ?Instructions ?Recorded ?Confirmed amlodipine 5 mg tablet 5 mg PO HS 04/21/16 03/03/25 aspirin 81 mg chewable tablet 81 mg PO DAILY 04/21/16 03/03/25 calcium 500 mg-vitamin D3 1,000 1 ea PO DAILY 04/21/16 03/03/25 unit-vitamin K 40 mcg chewable tablet levothyroxine 25 mcg tablet 25 mcg PO DAILY 04/21/16 03/03/25 losartan 100 1 tab-cap PO HS 04/21/16 03/03/25 mg-hydrochlorothiazide 25 mg tablet atenolol 25 mg tablet 25 mg PO HS 02/08/22 03/03/25 atorvastatin 10 mg tablet 10 mg PO .qod 02/08/22 03/03/25 prednisone 20 mg tablet 40 mg (2 x 20 mg) PO ONCE #10 tabs 12/06/23 03/03/25 albuterol sulfate 90 mcg/actuation 2 puff inhalation Q4H PRN 12/21/23 03/03/25 aerosol inhaler (Ventolin HFA) latanoprost 0.005 % eye drops 1 drp ophthalmic (eye) DAILY 12/21/23 03/03/25 losartan 100 mg tablet 100 mg PO DAILY 12/21/23 03/03/25 magnesium oxide 400 mg PO BID 12/21/23 03/03/25 nadolol 20 mg tablet 20 mg PO DAILY 12/21/23 03/03/25 simethicone 125 mg capsule (Gas 125 mg PO QD-BID PRN 12/21/23 03/03/25 Relief (simethicone)) cholecalciferol (vitamin D3) 25 25 mcg PO DAILY My Vitamin D was 02/27/24 03/03/25 mcg (1,000 unit) capsule (Vitamin low D3) Previous Rx's ?Medication ?Instructions ?Recorded prednisone 20 mg tablet 40 mg (2 x 20 mg) PO ONCE #10 tabs 12/06/23 Allergies Allergy/AdvReac Type Severity Reaction Status Date / Time morphine Allergy Mild Itching Verified 03/03/25 13:42 mannitol (From Reclast) AdvReac Intermediate eye Unverified 03/03/25 13:42 inflammation water for injection,sterile AdvReac Intermediate eye Unverified 03/03/25 13:42 (From Reclast) inflammation zoledronic acid (From AdvReac Intermediate eye Unverified 03/03/25 13:42 Reclast) inflammation General Stated Complaint: SOB SHIV: 3 Review of Systems All systems reviewed & are unremarkable except as noted in HPI and below Exam Narrative Exam Narrative: GENERAL APPEARANCE: Well-nourished, non-toxic, awake and alert, atraumatic, no acute distress. SKIN: Warm, pink, dry, intact, without rashes/lesions/ulcerations. HEAD: Normocephalic, atraumatic, normal hair distribution for gender/age. EYES: Normal conjunctiva, no exudates on lids/lashes. ENT: Nares patent, no circumoral cyanosis, no facial swelling NECK: Supple, trachea midline, painless cervical ROM. LUNGS/CHEST: Lungs CTA bilaterally- no rhonchi/rales/wheezes diffusely, non-labored respirations, normal A/P diameter, symmetrical expansion, no chest wall deformity HEART (CV/PV): Regular rate and rhythm without murmur, no peripheral edema, no JVD. ABDOMEN: Soft, non-distended, no guarding, no tenderness. MSK: Normal ROM, no swelling/deformity to bilateral UEs or LEs, moving all extremities without weakness, no cyanosis, spine midline without tenderness, normal curvature. NEURO: Mental Status AAOx4 - alert to person, place, time, events No facial droop, no forehead involvement. Motor: No focal weakness - strength 5/5 in bilateral UEs and LEs, proximal and distal, symmetric. some intention tremor, some tongue fasciculations Sensory: sensation intact to light touch globally. Gait normal: patient ambulated without ataxia into ED room. PSYCH: euthymic, cooperative, pleasant, appropriate speech Course Vital Signs Vital signs: Vital Signs Temperature 36.8 C 03/03/25 13:38 Pulse 50 L 03/03/25 13:38 Respiratory Rate 18 03/03/25 13:38 Blood Pressure 147/81 H 03/03/25 13:38 Pulse Oximetry 98 03/03/25 13:38 Temperature 36.8 C 03/03/25 13:38 Temperature Source Tympanic 03/03/25 13:38 Pulse 50 L 03/03/25 13:38 Respiratory Rate 18 03/03/25 15:47 Respiratory Effort Normal, Non-Labored 03/03/25 15:47 Respiratory Depth Normal 03/03/25 15:47 Respiratory Pattern Normal 03/03/25 15:47 Blood Pressure 147/81 H 03/03/25 13:38 Pulse Oximetry 98 03/03/25 13:38 Oxygen Delivery Method Room Air 03/03/25 13:38 Oxygen Flow Rate 0 03/03/25 13:38 Pain Level 0 03/03/25 15:47 Lab/Test Results Lab/Test Results: 03/03/25 16:55 Blood Blood Culture - Pending 03/03/25 16:25 Blood Blood Culture - Pending Laboratory Tests Range/Units 03/03/25 03/03/25 15:43 16:25 WBC (4.4-10.8) 10^3/uL 11.05 H RBC (3.93-5.22) 10^6/uL 3.77 L Hgb (11.2-15.7) g/dL 12.0 Hct (36.0-46.0) % 35.6 L MCV (80-95) fL 94 MCH (27.0-33.0) pg 31.8 MCHC (32.0-36.0) % 33.7 RDW (11.7-14.6) % 12.8 Plt Count (130-400) 10^3/uL 270 MPV (8.0-11.0) fL 10.5 Immature Gran % % 0.5 Neutrophils % % 58.8 Lymphocytes % % 22.3 Monocytes % % 9.7 Eosinophils % % 7.9 Basophils % % 0.8 Nucleated RBC % (0.0-0.3) % 0.0 Absolute Neutrophils (1.2-6.7) 10^3/uL 6.50 Absolute Lymphocytes (1.2-3.4) 10^3/uL 2.46 Absolute Monocytes (0.1-0.8) 10^3/uL 1.07 H Absolute Eosinophils (0.0-0.7) 10^3/uL 0.87 H Absolute Basophils (0.0-0.2) 10^3/uL 0.09 Sodium (136-145) mmol/L 139 Potassium (3.5-5.1) mmol/L 4.1 Chloride (98-107) mmol/L 106 Carbon Dioxide (21.0-32.0) mmol/L 20.0 L Anion Gap (3-11) mmol/L 13.0 H BUN (7-18) mg/dL 27 H Creatinine (0.55-1.02) mg/dL 1.6 H Est GFR (CKD-EPI 2020) (mL/min/1.73m2) 32.40 Glucose (74-106) mg/dL 106 Calcium (8.5-10.1) mg/dL 9.8 Magnesium (1.8-2.4) mg/dL 1.4 L Total Bilirubin (0.2-1.0) mg/dL 0.6 AST (15-37) U/L 37 ALT (14-59) U/L 154 H Alkaline Phosphatase (46-116) U/L 142 H Ammonia (11-32) umol/L 10 L Creatine Kinase (26-192) U/L 50 Troponin I (<or=51) ng/L 12 Total Protein (6.4-8.2) g/dL 8.1 Albumin (3.4-5.0) g/dL 3.7 Lipase (<78) U/L 49 TSH (0.36-3.74) uIU/mL 3.52 Urine Color (Yellow) Yellow Urine Clarity (Clear) Clear Urine pH (5-8) 5.0 Ur Specific [place] (1.005-1.025) 1.015 Urine Protein (Neg-Trace) mg/dL Negative Urine Ketones (Negative) mg/dL Negative Urine Blood (Negative) Trace-lysed H Urine Nitrite (Negative) Negative Urine Bilirubin (Negative) Negative Urine Urobilinogen (Up to 0.2) mg/dL 0.2 Ur Leukocyte Esterase (Negative) Trace H Urine RBC (0-2) HPF 0-2 Urine WBC (0-5) HPF 0-2 Ur Epithelial Cells (Negative) HPF Many Urine Crystals (Negative) HPF Negative Urine Bacteria (Negative) HPF Rare Urine Casts (Negative) LPF Negative Urine Mucus (Negative) Negative Ur Culture Indicated? No/Sq. Contamination Urine Glucose (Negative) mg/dL Negative Medical Decision Making This dictation utilizes [id number] dictation software and may contain unedited grammatical errors. 79 year-old female presents to ED today by POV/ambulating with a chief complaint of new onset of some tremors/shakes, and some shortness of breath/fatigue with exertion with onset noted today. Quality described as shakiness, no radiation to chest pain, abdominal pain, nausea/vomiting. Severity is described as not painful. Palliating factors include nothing attempted. Provoking factors include nothing specific. Events leading up to the incident/Associated Symptoms: Patient wonders if this could relate to low magnesium as she's had this in the past. Patients' medical history: Thyroid nodule, mitral valve regurgitation, dysphagia, bradycardia, asthenia, history of TIA, somatoform disorder, CKD stage IV. Family and social history: Noncontributory. Pertinent exam findings / vital signs include essential tremor, benign cardiopulmonary exam, benign abdomen, neuro intact. Differential / pathologies of concern include tremor, electrolyte abnormality, brain mass, UTI, thyroid pathology. Diagnostic studies of: -CBC, CMP, magnesium, ammonia, CK, troponin, lipase, TSH, UA, tick panel, CT head without contrast - CBC shows mild leukocytosis at 11.5 without anemia - CMP shows mildly low carbon dioxide, slight anion gap of 13, creatinine baseline 1.6 improved from priors, mild elevation of ALT only - Ammonia negative - CK negative - Troponin negative - Lipase negative - TSH within normal limits - UA without any sign of infection - CT head negative - Magnesium is significantly low at 1.4, repleted IV Interventions of: -4 mg p.o. magnesium, 2 g IV magnesium-improvement of symptoms. ED Course/Assessment/Plan: 79-year-old female has a cane going on onset today and some fatigue with exertion, does not completely quit with shortness of breath or respiratory distress, has no chest pain, no numbness, no alteration from baseline but does feel some aches possibly linked to her fatigue. Her laboratory workup shows hypomagnesemia which she has had in the past, she was repleted IV and improved, CT head shows no acute pathology there is no evidence of severe infection, no evidence of any metabolic encephalopathy, CK is negative indicating no rhabdomyolysis and the patient's baseline kidney function is better than her recent baselines, stressed strict return criteria for any emergent concerns. Findings not consistent with ACS, altered mental status, brain mass, rhabdomyolysis, UTI or other serious infection, thyroid pathology, sepsis. Disposition of hypomagnesemia. Patient verbalized understanding of the plan and return to ED criteria and engaged in shared decision making. Medical Records Medical records reviewed: Yes I reviewed the patient's medical records. Imaging Data Radiologic Study: Attestation: I personally reviewed and interpreted this imaging study as follows: Imaging: CT Scan Radiologist's impression: EXAM: CT HEAD WO CLINICAL HISTORY: new onset tremors. TECHNIQUE: Imaging Protocol: Axial computed tomography images with coronal and sagittal reformatted images were created and reviewed COMPARISON: No exams were available for comparison FINDINGS: Exam is mildly limited by motion. Ventricles and Extra axial spaces: Normal in size and morphology for the patient's age. Hemorrhage: None. Cerebral parenchyma: No evidence of acute infarct or mass. No significant atrophy. No significant white matter changes. Midline shift: None. Brainstem/Cerebellum: Normal. Bones: No skull or facial fractures. Hyperostosis frontalis interna. Visualized Paranasal sinuses:Clear. Mastoids: Clear. Soft Tissues: Unremarkable. ORBITS: Unremarkable. PITUITARY: Not enlarged. IMPRESSION: No acute intracranial process. Lab Data Lab results reviewed: Yes I reviewed the patient's lab results. Labs: Laboratory Tests Range/Units 03/03/25 03/03/25 15:43 16:25 WBC (4.4-10.8) 10^3/uL 11.05 H RBC (3.93-5.22) 10^6/uL 3.77 L Hgb (11.2-15.7) g/dL 12.0 Hct (36.0-46.0) % 35.6 L MCV (80-95) fL 94 MCH (27.0-33.0) pg 31.8 MCHC (32.0-36.0) % 33.7 RDW (11.7-14.6) % 12.8 Plt Count (130-400) 10^3/uL 270 MPV (8.0-11.0) fL 10.5 Immature Gran % % 0.5 Neutrophils % % 58.8 Lymphocytes % % 22.3 Monocytes % % 9.7 Eosinophils % % 7.9 Basophils % % 0.8 Nucleated RBC % (0.0-0.3) % 0.0 Absolute Neutrophils (1.2-6.7) 10^3/uL 6.50 Absolute Lymphocytes (1.2-3.4) 10^3/uL 2.46 Absolute Monocytes (0.1-0.8) 10^3/uL 1.07 H Absolute Eosinophils (0.0-0.7) 10^3/uL 0.87 H Absolute Basophils (0.0-0.2) 10^3/uL 0.09 Sodium (136-145) mmol/L 139 Potassium (3.5-5.1) mmol/L 4.1 Chloride (98-107) mmol/L 106 Carbon Dioxide (21.0-32.0) mmol/L 20.0 L Anion Gap (3-11) mmol/L 13.0 H BUN (7-18) mg/dL 27 H Creatinine (0.55-1.02) mg/dL 1.6 H Est GFR (CKD-EPI 2020) (mL/min/1.73m2) 32.40 Glucose (74-106) mg/dL 106 Calcium (8.5-10.1) mg/dL 9.8 Magnesium (1.8-2.4) mg/dL 1.4 L Total Bilirubin (0.2-1.0) mg/dL 0.6 AST (15-37) U/L 37 ALT (14-59) U/L 154 H Alkaline Phosphatase (46-116) U/L 142 H Ammonia (11-32) umol/L 10 L Creatine Kinase (26-192) U/L 50 Troponin I (<or=51) ng/L 12 Total Protein (6.4-8.2) g/dL 8.1 Albumin (3.4-5.0) g/dL 3.7 Lipase (<78) U/L 49 TSH (0.36-3.74) uIU/mL 3.52 Urine Color (Yellow) Yellow Urine Clarity (Clear) Clear Urine pH (5-8) 5.0 Ur Specific [place] (1.005-1.025) 1.015 Urine Protein (Neg-Trace) mg/dL Negative Urine Ketones (Negative) mg/dL Negative Urine Blood (Negative) Trace-lysed H Urine Nitrite (Negative) Negative Urine Bilirubin (Negative) Negative Urine Urobilinogen (Up to 0.2) mg/dL 0.2 Ur Leukocyte Esterase (Negative) Trace H Urine RBC (0-2) HPF 0-2 Urine WBC (0-5) HPF 0-2 Ur Epithelial Cells (Negative) HPF Many Urine Crystals (Negative) HPF Negative Urine Bacteria (Negative) HPF Rare Urine Casts (Negative) LPF Negative Urine Mucus (Negative) Negative Ur Culture Indicated? No/Sq. Contamination Urine Glucose (Negative) mg/dL Negative Lyme Disease Antibody (Negative) Negative PFSH All Active Problems (Updated 03/03/25 @ 19:39 by KELLY Stock) Hypomagnesemia (Acute) Tubular adenoma (Acute ~02/16/22) Rectal polyp (Acute) Screening for colon cancer (Acute) Globus sensation (Acute) Medical History Thyroid nodule Wheezing Abdominal bloating Mitral valve regurgitation Dysphagia Bradycardia Asthenia Breast lump Allergy to food Lymphadenopathy Exposure to communicable disease Obesity Glossodynia Encounter for allergy testing Urinary tract infectious disease Abnormal findings in stool Senile osteoporosis Chronic kidney disease Transient cerebral ischemia 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 Acute cystitis Dysuria Low blood pressure History of colonic polyps Cyst of right breast Acquired cystic kidney disease Somatoform disorder Primary open angle glaucoma of both eyes Left lower quadrant pain Localized skin eruption Chronic kidney disease, stage 4 (severe) Hypomagnesemia Obstruction of esophagus Diaphragmatic hernia BMI 30.0-30.9,adult Tubular adenoma of colon (07/03/16) Hypertension GERD (gastroesophageal reflux disease) Hyperplastic colon polyp Hypothyroidism Hyperlipidemia Osteoporosis Hx of renal insufficiency syndrome Pain of left heel Surgical History Acquired absence of both cervix and uterus History of colonoscopy with polypectomy (~02/16/22) Oophrectomy, Both Abdominal hysterectomy EGD - IV Sedation 2011 Colonoscopy - IV Sedation (07/03/16) 2006 Cholecystectomy 2006 Family History Other Diabetes Heart failure Hypertension Osteoporosis Social History Smoking/Tobacco Use Status: Never Smoking risk assessment performed?: Yes Alcohol Intake: never Drug use: Never Substance use type: does not use Do you feel safe at home: Yes Do you feel safe in your relationship?: Yes
[2025-03-05 11:39] LABS: Lyme Ab w Rflx to Lyme Confirm Negative (Negative)
[2025-03-06 22:38] LABS: B. miyamotoi PCR Negative (Negative); Babesia divergens/MO-1 Negative (Negative); Ehrlichia muris eauclairensis Negative (Negative)
== END 2025-03-03 19:49 | disposition home or self-care (01) ==
PROVIDERS: Emergency Provider Physician Assistant; PCP Nurse Practitioner Family
DX: E83.42 Hypomagnesemia (principal); R06.02 Shortness of breath
CPT/HCPCS: 99285; 99284; 36415; 80053; 82550; 83690; 87040; 87798; 93005; 96365; 96366; 70450; 81003; 81015; 82140; 83735; 84443; 84484; 85025; 86618; 93010; J3475

== ENCOUNTER 2025-03-12 12:35 | Outpatient (CLI) | payer MEDICARE, OTHER, SELFPAY ==
[2025-03-12 13:14] LABS: Magnesium 3.0 mg/dL (1.8-2.4)
== END 2025-03-12 12:36 | disposition home or self-care (01) ==
LOC: LBO 12:37
PROVIDERS: PCP Nurse Practitioner Family; Visit Provider Nurse Practitioner Family
DX: E83.42 Hypomagnesemia (principal)
CPT/HCPCS: 36415; 83735

== ENCOUNTER 2025-04-08 12:50 | Outpatient (REF) | payer MEDICARE, OTHER, SELFPAY ==
[2025-04-08 15:18] LABS: Anion Gap 8.9 mmol/L (3-11); BUN 34 mg/dL (7-18); CO2 29.1 mmol/L (21.0-32.0); Calcium 10.2 mg/dL (8.5-10.1); Chloride 101 mmol/L (98-107); Glucose 98 mg/dL (74-106); Magnesium 1.6 mg/dL (1.8-2.4); Potassium 4.0 mmol/L (3.5-5.1); Sodium 139 mmol/L (136-145)
== END 2025-04-08 12:51 | disposition home or self-care (01) ==
LOC: NCHCN 12:50
PROVIDERS: PCP Nurse Practitioner Family; Visit Provider Nurse Practitioner Family
DX: E83.42 Hypomagnesemia (principal); I10 Essential (primary) hypertension
CPT/HCPCS: 80048; 83735

== ENCOUNTER 2025-05-13 10:43 | Outpatient (REF) | payer MEDICARE, OTHER, SELFPAY ==
[2025-05-13 17:46] LABS: Anion Gap 10.4 mmol/L (3-11); BUN 29 mg/dL (9-23); CO2 25.6 mmol/L (20.0-31.0); Calcium 9.5 mg/dL (8.3-10.6); Chloride 107 mmol/L (98-107); Glucose 118 mg/dL (74-106); Potassium 4.3 mmol/L (3.5-5.1); Sodium 143 mmol/L (136-145)
[2025-05-13 17:47] LABS: Magnesium 2.1 mg/dL (1.6-2.6)
== END 2025-05-13 10:44 | disposition home or self-care (01) ==
LOC: NCHCN 10:43
PROVIDERS: PCP Nurse Practitioner Family; Visit Provider Nurse Practitioner Family
DX: R19.7 Diarrhea, unspecified (principal); E83.42 Hypomagnesemia
CPT/HCPCS: 80048; 83735